=== PATIENT | male | born 1965 | race African-American/Black ===

== ENCOUNTER 2020-07-15 16:47 | Inpatient (IN) | payer OTHER ==
[2020-07-15 18:51] VITALS: BMI 34.7
[2020-07-15] MEDS ORDERED: ACETAMINOPHEN 325 MG TABLET (FP) PO PRN ×2 (19:53)
[2020-07-15] MEDS ORDERED: BISMUTH SUBSALICYLATE 524 MG/30 ML UD PO PRN (19:53)
[2020-07-15] MEDS ORDERED: MAG HYDROX/AL HYDROX/SIMETH 30 ML UNIT-DOSE CUP PO PRN (19:53)
[2020-07-15] MEDS ORDERED: IBUPROFEN 400 MG TABLET (FP) PO PRN (19:53)
[2020-07-15] MEDS ORDERED: MAGNESIUM HYDROX 2400MG/30ML ORAL SUSPENSION 30 ML CUP PO PRN (19:53)
[2020-07-15] MEDS ORDERED: ONDANSETRON *ODT* 4 MG TABLET SL PRN (19:53)
[2020-07-15] MEDS ORDERED: MAGNESIUM CITRATE 300 ML BOTTLE PO PRN (19:53)
[2020-07-15] MEDS ORDERED: NICOTINE POLACRILEX 2 MG GUM BUC PRN (19:53)
[2020-07-15] MEDS ORDERED: MENTHOL/PHENOL 1 EACH UD MM PRN (19:53)
[2020-07-15] MEDS ORDERED: METHOCARBAMOL 500 MG TABLET PO PRN (19:53)
[2020-07-15] MEDS ORDERED: diazePAM 5 MG TABLET PO PRN (19:55)
[2020-07-15] MEDS ORDERED: amLODIPine BESYLATE 5 MG TABLET (FP) PO ONE (21:07)
[2020-07-15] MEDS: ASPIRIN 81 MG CHEWABLE TABLETS PO SCH (21:18)
[2020-07-15] MEDS: THIAMINE HCL 100 MG TABLET (FP) PO SCH (22:25)
[2020-07-15] MEDS: diazePAM 5 MG TABLET PO SCH (22:25)
[2020-07-15] MEDS: MELATONIN 5 MG TABLETS PO PRN (22:26)
[2020-07-15] MEDS: LATANOPROST 0.005% OPHTH SOLN 2.5ML BOTTLE OU SCH (22:28)
[2020-07-15] MEDS: TIMOLOL 0.25% OPHTHALMIC SOL 5 ML BOTTLE OU SCH (23:08)
[2020-07-16] MEDS: diazePAM 5 MG TABLET PO SCH ×4 (06:32→22:22)
[2020-07-16] MEDS: amLODIPine BESYLATE 5 MG TABLET (FP) PO SCH (10:10)
[2020-07-16] MEDS: TAMSULOSIN HCL 0.4 MG CAP PO SCH (10:10)
[2020-07-16] MEDS: ASPIRIN 81 MG CHEWABLE TABLETS PO SCH (10:10)
[2020-07-16] MEDS: TIMOLOL 0.25% OPHTHALMIC SOL 5 ML BOTTLE OU SCH ×2 (10:13→22:24)
[2020-07-16] MEDS: PRENATAL VITAMINS W/ FOLIC ACID TABLET (FP) PO SCH (10:13)
[2020-07-16 10:34] LABS: HEMATOCRIT 41.8 % (35.4-49); HEMOGLOBIN 13.6 GM/dL (11.7-16.9); MCH 30.1 pg (25.7-33.7); MCHC 32.6 g/dl (32.0-35.9); MEAN CELL VOLUME 92.3 fl (80-96); MEAN PLT VOLUME 7.8 fl (7.5-11.1); PLATELET COUNT 235 K/MM3 (134-434); RBC 4.53 M/mm3 (4.00-5.60); RDW 13.7 % (11.9-15.9); WHITE BLOOD COUNT 6.1 K/mm3 (4.0-10.0)
[2020-07-16 10:36] LABS: POTASSIUM 4.2 mmol/L (3.5-5.1)
[2020-07-16 10:43] LABS: CALCIUM 8.6 mg/dL (8.5-10.1)
[2020-07-16 10:44] LABS: ALBUMIN 3.4 g/dl (3.4-5.0)
[2020-07-16 10:47] LABS: CREATININE 0.9 mg/dL (0.55-1.3)
[2020-07-16 10:48] LABS: BILIRUBIN,TOTAL 1.4 mg/dL (0.2-1); TOT PROT 6.4 g/dl (6.4-8.2)
[2020-07-16] MEDS: THIAMINE HCL 100 MG TABLET (FP) PO SCH (22:22)
[2020-07-16] MEDS: LATANOPROST 0.005% OPHTH SOLN 2.5ML BOTTLE OU SCH (22:24)
[2020-07-17] MEDS: diazePAM 5 MG TABLET PO SCH ×3 (06:44→22:19)
[2020-07-17] MEDS: TAMSULOSIN HCL 0.4 MG CAP PO SCH (10:16)
[2020-07-17] MEDS: amLODIPine BESYLATE 5 MG TABLET (FP) PO SCH (10:16)
[2020-07-17] MEDS: ASPIRIN 81 MG CHEWABLE TABLETS PO SCH (10:16)
[2020-07-17] MEDS: PRENATAL VITAMINS W/ FOLIC ACID TABLET (FP) PO SCH (10:17)
[2020-07-17] MEDS: TIMOLOL 0.25% OPHTHALMIC SOL 5 ML BOTTLE OU SCH ×2 (10:17→22:19)
[2020-07-17] MEDS ORDERED: FAMOTIDINE 20 MG TABLET PO ONE (11:22)
[2020-07-17] MEDS ORDERED: MASKS NR ONE (17:00)
[2020-07-17] MEDS: THIAMINE HCL 100 MG TABLET (FP) PO SCH (22:19)
[2020-07-17] MEDS: LATANOPROST 0.005% OPHTH SOLN 2.5ML BOTTLE OU SCH (22:20)
[2020-07-18] MEDS: diazePAM 5 MG TABLET PO SCH ×2 (07:07→17:27)
[2020-07-18] MEDS: TAMSULOSIN HCL 0.4 MG CAP PO SCH (10:42)
[2020-07-18] MEDS: ASPIRIN 81 MG CHEWABLE TABLETS PO SCH (10:42)
[2020-07-18] MEDS: amLODIPine BESYLATE 5 MG TABLET (FP) PO SCH (10:42)
[2020-07-18] MEDS: PRENATAL VITAMINS W/ FOLIC ACID TABLET (FP) PO SCH (10:42)
[2020-07-18] MEDS: TIMOLOL 0.25% OPHTHALMIC SOL 5 ML BOTTLE OU SCH ×2 (10:43→22:18)
[2020-07-18] MEDS: CYCLOBENZAPRINE HCL 10 MG TABLET (FP) PO PRN (10:44)
[2020-07-18] MEDS: LIDOCAINE 5% TOPICAL PATCH TP SCH (15:39)
[2020-07-18] MEDS ORDERED: LIDOCAINE PATCH REMOVAL MC SCH (22:00)
[2020-07-18] MEDS: THIAMINE HCL 100 MG TABLET (FP) PO SCH (22:18)
[2020-07-18] MEDS: MELATONIN 5 MG TABLETS PO PRN (22:18)
[2020-07-18] MEDS: LATANOPROST 0.005% OPHTH SOLN 2.5ML BOTTLE OU SCH (22:18)
[2020-07-19] MEDS ORDERED: diazePAM 5 MG TABLET PO ONE (06:00)
[2020-07-19] MEDS: TAMSULOSIN HCL 0.4 MG CAP PO SCH (09:30)
[2020-07-19 09:54] VITALS: BP 134/75; PULSE 80; TEMP 97.7
[2020-07-19] MEDS: ASPIRIN 81 MG CHEWABLE TABLETS PO SCH (10:08)
[2020-07-19] MEDS: LIDOCAINE 5% TOPICAL PATCH TP SCH (10:08)
[2020-07-19] MEDS: PRENATAL VITAMINS W/ FOLIC ACID TABLET (FP) PO SCH (10:08)
[2020-07-19] MEDS: TIMOLOL 0.25% OPHTHALMIC SOL 5 ML BOTTLE OU SCH (10:09)
[2020-07-19] MEDS: amLODIPine BESYLATE 5 MG TABLET (FP) PO SCH (10:09)
[2020-07-19] MEDS: CYCLOBENZAPRINE HCL 10 MG TABLET (FP) PO PRN (10:12)
== END 2020-07-19 11:45 | disposition other institution (70) | DRG 774 ==
LOC: YASAS 16:47 → Y6N 20:05
PROVIDERS: ADMIT Allergy & Immunology; ATTEND Allergy & Immunology
PROC: HZ2ZZZZ Detoxification Services for Substance Abuse Treatment (ICD-10-PCS; principal; 2020-07-15)
DX: F10.230 Alcohol dependence with withdrawal, uncomplicated (principal); F10.220 Alcohol dependence with intoxication, uncomplicated; F14.20 Cocaine dependence, uncomplicated; F17.210 Nicotine dependence, cigarettes, uncomplicated; I10 Essential (primary) hypertension; N40.0 Benign prostatic hyperplasia without lower urinary tract symptoms; H40.9 Unspecified glaucoma; I69.354 Hemiplegia and hemiparesis following cerebral infarction affecting left non-dominant side; Z86.79 Personal history of other diseases of the circulatory system
CPT/HCPCS: 36415; 80053; 85027; 86780; C9803; U0003

== ENCOUNTER 2020-07-19 12:07 | Inpatient (IN) | payer OTHER ==
[2020-07-19] MEDS ORDERED: guaiFENesin 200 MG/10 ML 10 ML UNIT-DOSE CUPS PO PRN (16:02)
[2020-07-19] MEDS ORDERED: ACETAMINOPHEN 325 MG TABLET (FP) PO PRN (16:02)
[2020-07-19] MEDS ORDERED: LOPERAMIDE HCL 2 MG CAPSULE PO PRN (16:02)
[2020-07-19] MEDS ORDERED: MENTHOL/PHENOL 1 EACH UD MM PRN (16:02)
[2020-07-19] MEDS ORDERED: NICOTINE POLACRILEX 2 MG GUM BUC PRN (16:02)
[2020-07-19] MEDS ORDERED: P-EPHED 60MG/TRIPROLIDI 2.5MG TABLET PO PRN (16:02)
[2020-07-19] MEDS ORDERED: MAGNESIUM CITRATE 300 ML BOTTLE PO PRN (16:02)
[2020-07-19] MEDS ORDERED: MAGNESIUM HYDROX 2400MG/30ML ORAL SUSPENSION 30 ML CUP PO PRN (16:02)
[2020-07-19] MEDS ORDERED: MAG HYDROX/AL HYDROX/SIMETH 30 ML UNIT-DOSE CUP PO PRN (16:02)
[2020-07-19] MEDS: METHOCARBAMOL 500 MG TABLET PO PRN (21:34)
[2020-07-19] MEDS: LATANOPROST 0.005% OPHTH SOLN 2.5ML BOTTLE OU SCH (21:34)
[2020-07-19] MEDS: TIMOLOL 0.25% OPHTHALMIC SOL 5 ML BOTTLE OU SCH (21:34)
[2020-07-19] MEDS: MELATONIN 5 MG TABLETS PO SCH (21:34)
[2020-07-19] MEDS: THIAMINE HCL 100 MG TABLET (FP) PO SCH (21:34)
[2020-07-19] MEDS: hydrOXYzine PAMOATE 25 MG CAPSULE (FP) PO PRN (21:35)
[2020-07-19] MEDS: LIDOCAINE PATCH REMOVAL MC SCH (21:35)
[2020-07-20] MEDS: LIDOCAINE 5% TOPICAL PATCH TP SCH (10:10)
[2020-07-20] MEDS: TAMSULOSIN HCL 0.4 MG CAP PO SCH (10:10)
[2020-07-20] MEDS: ASPIRIN 81 MG CHEWABLE TABLETS PO SCH (10:10)
[2020-07-20] MEDS: PRENATAL VITAMINS W/ FOLIC ACID TABLET (FP) PO SCH (10:10)
[2020-07-20] MEDS: amLODIPine BESYLATE 5 MG TABLET (FP) PO SCH (10:10)
[2020-07-20] MEDS: METHOCARBAMOL 500 MG TABLET PO PRN ×2 (10:12→21:59)
[2020-07-20] MEDS: TIMOLOL 0.25% OPHTHALMIC SOL 5 ML BOTTLE OU SCH ×2 (10:13→22:00)
[2020-07-20] MEDS: IBUPROFEN 400 MG TABLET (FP) PO PRN (10:14)
[2020-07-20] MEDS ORDERED: MASKS NR ONE (20:00)
[2020-07-20] MEDS: MELATONIN 5 MG TABLETS PO SCH (21:58)
[2020-07-20] MEDS: LIDOCAINE PATCH REMOVAL MC SCH (21:58)
[2020-07-20] MEDS: hydrOXYzine PAMOATE 25 MG CAPSULE (FP) PO PRN (21:59)
[2020-07-20] MEDS: THIAMINE HCL 100 MG TABLET (FP) PO SCH (21:59)
[2020-07-20] MEDS: LATANOPROST 0.005% OPHTH SOLN 2.5ML BOTTLE OU SCH (22:00)
[2020-07-21] MEDS: TAMSULOSIN HCL 0.4 MG CAP PO SCH (10:41)
[2020-07-21] MEDS: hydrOXYzine PAMOATE 25 MG CAPSULE (FP) PO PRN ×2 (10:41→21:19)
[2020-07-21] MEDS: PRENATAL VITAMINS W/ FOLIC ACID TABLET (FP) PO SCH (10:41)
[2020-07-21] MEDS: amLODIPine BESYLATE 5 MG TABLET (FP) PO SCH (10:41)
[2020-07-21] MEDS: LIDOCAINE 5% TOPICAL PATCH TP SCH (10:42)
[2020-07-21] MEDS: IBUPROFEN 400 MG TABLET (FP) PO PRN (10:42)
[2020-07-21] MEDS: TIMOLOL 0.25% OPHTHALMIC SOL 5 ML BOTTLE OU SCH ×2 (10:42→21:18)
[2020-07-21] MEDS: ASPIRIN 81 MG CHEWABLE TABLETS PO SCH (10:42)
[2020-07-21] MEDS: METHOCARBAMOL 500 MG TABLET PO PRN ×2 (10:43→21:19)
[2020-07-21] MEDS: LATANOPROST 0.005% OPHTH SOLN 2.5ML BOTTLE OU SCH (21:18)
[2020-07-21] MEDS: LIDOCAINE PATCH REMOVAL MC SCH (21:18)
[2020-07-21] MEDS: THIAMINE HCL 100 MG TABLET (FP) PO SCH (21:19)
[2020-07-21] MEDS: MELATONIN 5 MG TABLETS PO SCH (21:19)
[2020-07-21] MEDS: GABAPENTIN 300 MG CAPSULE PO SCH (21:19)
[2020-07-22] MEDS: ASPIRIN 81 MG CHEWABLE TABLETS PO SCH (10:14)
[2020-07-22] MEDS: TAMSULOSIN HCL 0.4 MG CAP PO SCH (10:14)
[2020-07-22] MEDS: hydrOXYzine PAMOATE 25 MG CAPSULE (FP) PO PRN ×2 (10:15→22:06)
[2020-07-22] MEDS: GABAPENTIN 300 MG CAPSULE PO SCH ×2 (10:15→22:06)
[2020-07-22] MEDS: amLODIPine BESYLATE 5 MG TABLET (FP) PO SCH (10:15)
[2020-07-22] MEDS: IBUPROFEN 400 MG TABLET (FP) PO PRN (10:15)
[2020-07-22] MEDS: PRENATAL VITAMINS W/ FOLIC ACID TABLET (FP) PO SCH (10:16)
[2020-07-22] MEDS: METHOCARBAMOL 500 MG TABLET PO PRN ×2 (10:16→22:06)
[2020-07-22] MEDS: TIMOLOL 0.25% OPHTHALMIC SOL 5 ML BOTTLE OU SCH ×2 (10:16→22:06)
[2020-07-22] MEDS: LIDOCAINE 5% TOPICAL PATCH TP SCH (10:16)
[2020-07-22] MEDS: LATANOPROST 0.005% OPHTH SOLN 2.5ML BOTTLE OU SCH (22:05)
[2020-07-22] MEDS: LIDOCAINE PATCH REMOVAL MC SCH (22:05)
[2020-07-22] MEDS: MELATONIN 5 MG TABLETS PO SCH (22:06)
[2020-07-22] MEDS: THIAMINE HCL 100 MG TABLET (FP) PO SCH (22:06)
[2020-07-23] MEDS: ASPIRIN 81 MG CHEWABLE TABLETS PO SCH (10:34)
[2020-07-23] MEDS: GABAPENTIN 300 MG CAPSULE PO SCH ×2 (10:34→21:27)
[2020-07-23] MEDS: amLODIPine BESYLATE 5 MG TABLET (FP) PO SCH (10:35)
[2020-07-23] MEDS: hydrOXYzine PAMOATE 25 MG CAPSULE (FP) PO PRN (10:35)
[2020-07-23] MEDS: LIDOCAINE 5% TOPICAL PATCH TP SCH (10:35)
[2020-07-23] MEDS: TAMSULOSIN HCL 0.4 MG CAP PO SCH (10:35)
[2020-07-23] MEDS: PRENATAL VITAMINS W/ FOLIC ACID TABLET (FP) PO SCH (10:36)
[2020-07-23] MEDS: TIMOLOL 0.25% OPHTHALMIC SOL 5 ML BOTTLE OU SCH ×2 (10:38→21:29)
[2020-07-23] MEDS: LIDOCAINE PATCH REMOVAL MC SCH (21:27)
[2020-07-23] MEDS: THIAMINE HCL 100 MG TABLET (FP) PO SCH (21:27)
[2020-07-23] MEDS: MELATONIN 5 MG TABLETS PO SCH (21:27)
[2020-07-23] MEDS: LATANOPROST 0.005% OPHTH SOLN 2.5ML BOTTLE OU SCH (21:27)
[2020-07-24] MEDS: TIMOLOL 0.25% OPHTHALMIC SOL 5 ML BOTTLE OU SCH ×2 (10:18→21:35)
[2020-07-24] MEDS: TAMSULOSIN HCL 0.4 MG CAP PO SCH (10:19)
[2020-07-24] MEDS: amLODIPine BESYLATE 5 MG TABLET (FP) PO SCH (10:19)
[2020-07-24] MEDS: GABAPENTIN 300 MG CAPSULE PO SCH ×2 (10:19→21:35)
[2020-07-24] MEDS: hydrOXYzine PAMOATE 25 MG CAPSULE (FP) PO PRN ×2 (10:19→21:35)
[2020-07-24] MEDS: LIDOCAINE 5% TOPICAL PATCH TP SCH (10:19)
[2020-07-24] MEDS: PRENATAL VITAMINS W/ FOLIC ACID TABLET (FP) PO SCH (10:19)
[2020-07-24] MEDS: ASPIRIN 81 MG CHEWABLE TABLETS PO SCH (10:19)
[2020-07-24] MEDS: LATANOPROST 0.005% OPHTH SOLN 2.5ML BOTTLE OU SCH (21:35)
[2020-07-24] MEDS: MELATONIN 5 MG TABLETS PO SCH (21:35)
[2020-07-24] MEDS: METHOCARBAMOL 500 MG TABLET PO PRN (21:35)
[2020-07-24] MEDS: THIAMINE HCL 100 MG TABLET (FP) PO SCH (21:35)
[2020-07-24] MEDS: LIDOCAINE PATCH REMOVAL MC SCH (21:35)
[2020-07-25] MEDS: PRENATAL VITAMINS W/ FOLIC ACID TABLET (FP) PO SCH (10:43)
[2020-07-25] MEDS: ASPIRIN 81 MG CHEWABLE TABLETS PO SCH (10:43)
[2020-07-25] MEDS: GABAPENTIN 300 MG CAPSULE PO SCH ×2 (10:43→21:23)
[2020-07-25] MEDS: amLODIPine BESYLATE 5 MG TABLET (FP) PO SCH (10:43)
[2020-07-25] MEDS: METHOCARBAMOL 500 MG TABLET PO PRN ×2 (10:43→21:23)
[2020-07-25] MEDS: hydrOXYzine PAMOATE 25 MG CAPSULE (FP) PO PRN ×2 (10:43→21:23)
[2020-07-25] MEDS: IBUPROFEN 400 MG TABLET (FP) PO PRN (10:44)
[2020-07-25] MEDS: LIDOCAINE 5% TOPICAL PATCH TP SCH (10:44)
[2020-07-25] MEDS: TIMOLOL 0.25% OPHTHALMIC SOL 5 ML BOTTLE OU SCH ×2 (10:45→21:23)
[2020-07-25] MEDS: TAMSULOSIN HCL 0.4 MG CAP PO SCH (10:46)
[2020-07-25] MEDS: THIAMINE HCL 100 MG TABLET (FP) PO SCH (21:23)
[2020-07-25] MEDS: MELATONIN 5 MG TABLETS PO SCH (21:23)
[2020-07-25] MEDS: LATANOPROST 0.005% OPHTH SOLN 2.5ML BOTTLE OU SCH (21:23)
[2020-07-25] MEDS: LIDOCAINE PATCH REMOVAL MC SCH (21:23)
[2020-07-26] MEDS: ASPIRIN 81 MG CHEWABLE TABLETS PO SCH (10:29)
[2020-07-26] MEDS: LIDOCAINE 5% TOPICAL PATCH TP SCH (10:29)
[2020-07-26] MEDS: GABAPENTIN 300 MG CAPSULE PO SCH ×2 (10:29→21:31)
[2020-07-26] MEDS: TAMSULOSIN HCL 0.4 MG CAP PO SCH (10:29)
[2020-07-26] MEDS: amLODIPine BESYLATE 5 MG TABLET (FP) PO SCH (10:29)
[2020-07-26] MEDS: PRENATAL VITAMINS W/ FOLIC ACID TABLET (FP) PO SCH (10:30)
[2020-07-26] MEDS: TIMOLOL 0.25% OPHTHALMIC SOL 5 ML BOTTLE OU SCH ×2 (10:30→21:31)
[2020-07-26] MEDS: METHOCARBAMOL 500 MG TABLET PO PRN ×2 (10:32→21:31)
[2020-07-26] MEDS: hydrOXYzine PAMOATE 25 MG CAPSULE (FP) PO PRN (21:31)
[2020-07-26] MEDS: THIAMINE HCL 100 MG TABLET (FP) PO SCH (21:31)
[2020-07-26] MEDS: LIDOCAINE PATCH REMOVAL MC SCH (21:31)
[2020-07-26] MEDS: MELATONIN 5 MG TABLETS PO SCH (21:31)
[2020-07-26] MEDS: LATANOPROST 0.005% OPHTH SOLN 2.5ML BOTTLE OU SCH (21:31)
[2020-07-27] MEDS ORDERED: MASKS NR ONE (06:17)
[2020-07-27] MEDS: PRENATAL VITAMINS W/ FOLIC ACID TABLET (FP) PO SCH (09:43)
[2020-07-27] MEDS: GABAPENTIN 300 MG CAPSULE PO SCH ×2 (09:43→21:26)
[2020-07-27] MEDS: amLODIPine BESYLATE 5 MG TABLET (FP) PO SCH (09:43)
[2020-07-27] MEDS: ASPIRIN 81 MG CHEWABLE TABLETS PO SCH (09:43)
[2020-07-27] MEDS: TAMSULOSIN HCL 0.4 MG CAP PO SCH (09:43)
[2020-07-27] MEDS: LIDOCAINE 5% TOPICAL PATCH TP SCH (09:44)
[2020-07-27] MEDS: METHOCARBAMOL 500 MG TABLET PO PRN (09:45)
[2020-07-27] MEDS: TIMOLOL 0.25% OPHTHALMIC SOL 5 ML BOTTLE OU SCH ×2 (09:46→21:27)
[2020-07-27] MEDS: hydrOXYzine PAMOATE 25 MG CAPSULE (FP) PO PRN (21:26)
[2020-07-27] MEDS: THIAMINE HCL 100 MG TABLET (FP) PO SCH (21:26)
[2020-07-27] MEDS: MELATONIN 5 MG TABLETS PO SCH (21:27)
[2020-07-27] MEDS: LIDOCAINE PATCH REMOVAL MC SCH (21:28)
[2020-07-27] MEDS: LATANOPROST 0.005% OPHTH SOLN 2.5ML BOTTLE OU SCH (21:28)
[2020-07-28] MEDS: ASPIRIN 81 MG CHEWABLE TABLETS PO SCH (09:08)
[2020-07-28] MEDS: LIDOCAINE 5% TOPICAL PATCH TP SCH (09:08)
[2020-07-28] MEDS: TAMSULOSIN HCL 0.4 MG CAP PO SCH (09:08)
[2020-07-28] MEDS: GABAPENTIN 300 MG CAPSULE PO SCH (09:08)
[2020-07-28] MEDS: amLODIPine BESYLATE 5 MG TABLET (FP) PO SCH (09:08)
[2020-07-28] MEDS: PRENATAL VITAMINS W/ FOLIC ACID TABLET (FP) PO SCH (09:08)
[2020-07-28] MEDS: TIMOLOL 0.25% OPHTHALMIC SOL 5 ML BOTTLE OU SCH (09:11)
[2020-07-28 11:05] VITALS: BP 110/60; PULSE 88; TEMP 98.2
== END 2020-07-28 10:00 | disposition home or self-care (01) | DRG 772 ==
LOC: YASAS 12:07 → Y5N 12:08
PROVIDERS: ADMIT Allergy & Immunology; ATTEND Allergy & Immunology
PROC: HZ42ZZZ Group Counseling for Substance Abuse Treatment, Cognitive-Behavioral (ICD-10-PCS; principal; 2020-07-19)
DX: F10.20 Alcohol dependence, uncomplicated (principal); F12.20 Cannabis dependence, uncomplicated; F17.210 Nicotine dependence, cigarettes, uncomplicated; I10 Essential (primary) hypertension; N40.0 Benign prostatic hyperplasia without lower urinary tract symptoms; H40.9 Unspecified glaucoma; R00.0 Tachycardia, unspecified; I69.354 Hemiplegia and hemiparesis following cerebral infarction affecting left non-dominant side; Z86.79 Personal history of other diseases of the circulatory system
CPT/HCPCS: C9803; U0003

== ENCOUNTER 2020-10-09 16:36 | Inpatient (IN) | payer OTHER ==
[2020-10-09 17:59] VITALS: BMI 35.6
[2020-10-09] MEDS ORDERED: IBUPROFEN 400 MG TABLET (FP) PO PRN (18:59)
[2020-10-09] MEDS ORDERED: chlordiazePOXIDE HCL 25 MG CAPSULE PO PRN (18:59)
[2020-10-09] MEDS ORDERED: MAGNESIUM CITRATE 300 ML BOTTLE PO PRN (18:59)
[2020-10-09] MEDS ORDERED: ACETAMINOPHEN 325 MG TABLET (FP) PO PRN ×2 (18:59)
[2020-10-09] MEDS ORDERED: METHOCARBAMOL 500 MG TABLET PO PRN (18:59)
[2020-10-09] MEDS ORDERED: BISMUTH SUBSALICYLATE 524 MG/30 ML UD PO PRN (18:59)
[2020-10-09] MEDS ORDERED: MENTHOL/PHENOL 1 EACH UD MM PRN (18:59)
[2020-10-09] MEDS ORDERED: MAGNESIUM HYDROX 2400MG/30ML ORAL SUSPENSION 30 ML CUP PO PRN (18:59)
[2020-10-09] MEDS ORDERED: ONDANSETRON *ODT* 4 MG TABLET SL PRN (18:59)
[2020-10-09] MEDS ORDERED: MAG HYDROX/AL HYDROX/SIMETH 30 ML UNIT-DOSE CUP PO PRN (18:59)
[2020-10-09] MEDS: chlordiazePOXIDE HCL 25 MG CAPSULE PO SCH (23:20)
[2020-10-09] MEDS: MELATONIN 5 MG TABLETS PO SCH (23:20)
[2020-10-09] MEDS: THIAMINE HCL 100 MG TABLET (FP) PO SCH (23:20)
[2020-10-10] MEDS: chlordiazePOXIDE HCL 25 MG CAPSULE PO SCH ×4 (06:29→22:29)
[2020-10-10] MEDS ORDERED: PRENATAL VITAMINS W/ FOLIC ACID TABLET (FP) PO SCH (10:00)
[2020-10-10] MEDS ORDERED: ASPIRIN 81 MG CHEWABLE TABLETS PO SCH (12:30)
[2020-10-10] MEDS ORDERED: TAMSULOSIN HCL 0.4 MG CAP PO SCH (12:30)
[2020-10-10] MEDS ORDERED: amLODIPine BESYLATE 5 MG TABLET (FP) PO SCH (12:30)
[2020-10-10] MEDS: GABAPENTIN 300 MG CAPSULE PO SCH ×2 (13:55→22:29)
[2020-10-10] MEDS: TIMOLOL 0.25% OPHTHALMIC SOL 5 ML BOTTLE OU SCH ×2 (15:21→22:29)
[2020-10-10] MEDS ORDERED: LATANOPROST 0.005% OPHTH SOLN 2.5ML BOTTLE OU SCH (22:00)
[2020-10-10] MEDS: THIAMINE HCL 100 MG TABLET (FP) PO SCH (22:29)
[2020-10-10] MEDS: MELATONIN 5 MG TABLETS PO SCH (22:29)
[2020-10-11] MEDS ORDERED: chlordiazePOXIDE HCL 25 MG CAPSULE PO SCH (05:00)
[2020-10-11 06:12] VITALS: BP 119/63; PULSE 71; TEMP 98
[2020-10-12] MEDS ORDERED: chlordiazePOXIDE HCL 10 MG CAPSULE PO PRN
[2020-10-12] MEDS ORDERED: chlordiazePOXIDE HCL 10 MG CAPSULE PO SCH (05:00)
[2020-10-13] MEDS ORDERED: chlordiazePOXIDE HCL 10 MG CAPSULE PO SCH (05:00)
[2020-10-14] MEDS ORDERED: chlordiazePOXIDE HCL 10 MG CAPSULE PO ONE (05:00)
== END 2020-10-11 10:51 | disposition left against medical advice (07) | DRG 770 ==
LOC: YASAS 16:36 → Y6N 21:02
PROVIDERS: ADMIT Allergy & Immunology; ATTEND Allergy & Immunology
PROC: HZ2ZZZZ Detoxification Services for Substance Abuse Treatment (ICD-10-PCS; principal; 2020-10-09)
DX: F10.230 Alcohol dependence with withdrawal, uncomplicated (principal); F14.10 Cocaine abuse, uncomplicated; F41.9 Anxiety disorder, unspecified; F32.9 Major depressive disorder, single episode, unspecified; H40.9 Unspecified glaucoma; I10 Essential (primary) hypertension; K21.9 Gastro-esophageal reflux disease without esophagitis; N40.0 Benign prostatic hyperplasia without lower urinary tract symptoms; I69.854 Hemiplegia and hemiparesis following other cerebrovascular disease affecting left non-dominant side; Z59.0 Homelessness; Z56.0 Unemployment, unspecified
CPT/HCPCS: 93005; 93010; C9803; U0003

== ENCOUNTER 2020-11-25 16:24 | Inpatient (IN) | payer OTHER ==
[2020-11-25 18:15] VITALS: BMI 35.6
[2020-11-25] MEDS ORDERED: NICOTINE POLACRILEX 2 MG GUM BUC PRN (22:04)
[2020-11-25] MEDS ORDERED: BISMUTH SUBSALICYLATE 524 MG/30 ML UD PO PRN (22:04)
[2020-11-25] MEDS ORDERED: MAGNESIUM HYDROX 2400MG/30ML ORAL SUSPENSION 30 ML CUP PO PRN (22:04)
[2020-11-25] MEDS ORDERED: MENTHOL/PHENOL 1 EACH UD MM PRN (22:04)
[2020-11-25] MEDS ORDERED: IBUPROFEN 400 MG TABLET (FP) PO PRN (22:04)
[2020-11-25] MEDS ORDERED: ACETAMINOPHEN 325 MG TABLET (FP) PO PRN ×2 (22:04)
[2020-11-25] MEDS ORDERED: MAGNESIUM CITRATE 300 ML BOTTLE PO PRN (22:04)
[2020-11-25] MEDS ORDERED: ONDANSETRON *ODT* 4 MG TABLET SL PRN (22:04)
[2020-11-25] MEDS ORDERED: chlordiazePOXIDE HCL 25 MG CAPSULE PO PRN (22:04)
[2020-11-25] MEDS ORDERED: METHOCARBAMOL 500 MG TABLET PO PRN (22:04)
[2020-11-25] MEDS ORDERED: MAG HYDROX/AL HYDROX/SIMETH 30 ML UNIT-DOSE CUP PO PRN (22:04)
[2020-11-26] MEDS ORDERED: chlordiazePOXIDE HCL 25 MG CAPSULE ONE ×2 (02:18→06:12)
[2020-11-26] MEDS: chlordiazePOXIDE HCL 25 MG CAPSULE PO SCH ×5 (05:21→22:58)
[2020-11-26] MEDS: GABAPENTIN 300 MG CAPSULE PO SCH ×3 (05:22→22:58)
[2020-11-26] MEDS ORDERED: hydrOXYzine PAMOATE 25 MG CAPSULE (FP) PO ONE (06:14)
[2020-11-26] MEDS: hydrOXYzine PAMOATE 25 MG CAPSULE (FP) PO SCH ×5 (06:16→22:58)
[2020-11-26] MEDS: PRENATAL VITAMINS W/ FOLIC ACID TABLET (FP) PO SCH (11:12)
[2020-11-26] MEDS: amLODIPine BESYLATE 5 MG TABLET (FP) PO SCH (11:12)
[2020-11-26] MEDS: ASPIRIN 81 MG CHEWABLE TABLETS PO SCH (11:12)
[2020-11-26] MEDS: TAMSULOSIN HCL 0.4 MG CAP PO SCH (11:12)
[2020-11-26] MEDS: NICOTINE 14 MG/24 HOURS TOPICAL PATCH TD SCH (11:12)
[2020-11-26 12:16] LABS: HEMATOCRIT 42.2 % (35.4-49); MCH 31.1 pg (25.7-33.7); MCHC 33.1 g/dl (32.0-35.9); MEAN CELL VOLUME 93.8 fl (80-96); MEAN PLT VOLUME 8.2 fl (7.5-11.1); PLATELET COUNT 227 K/MM3 (134-434); RDW 14.5 % (11.9-15.9); WHITE BLOOD COUNT 6.4 K/mm3 (4.0-10.0)
[2020-11-26 12:29] LABS: CALCIUM 8.8 mg/dL (8.5-10.1)
[2020-11-26 12:30] LABS: ALBUMIN 3.9 g/dl (3.4-5.0); BLOOD UREA NITROGEN 10.2 mg/dL (7-18)
[2020-11-26 12:33] LABS: BILIRUBIN,TOTAL 0.8 mg/dL (0.2-1); CREATININE 0.9 mg/dL (0.55-1.3)
[2020-11-26 12:34] LABS: TOT PROT 7.1 g/dl (6.4-8.2)
[2020-11-26] MEDS: TIMOLOL 0.25% OPHTHALMIC SOL 5 ML BOTTLE OU SCH (15:32)
[2020-11-26] MEDS: MELATONIN 5 MG TABLETS PO SCH (22:58)
[2020-11-26] MEDS: THIAMINE HCL 100 MG TABLET (FP) PO SCH (22:59)
[2020-11-26] MEDS: LATANOPROST 0.005% OPHTH SOLN 2.5ML BOTTLE OU SCH (23:03)
[2020-11-27] MEDS: TIMOLOL 0.25% OPHTHALMIC SOL 5 ML BOTTLE OU SCH ×3 (00:36→22:27)
[2020-11-27] MEDS: chlordiazePOXIDE HCL 25 MG CAPSULE PO SCH ×4 (07:11→22:25)
[2020-11-27] MEDS: hydrOXYzine PAMOATE 25 MG CAPSULE (FP) PO SCH ×5 (07:11→22:25)
[2020-11-27] MEDS ORDERED: CYCLOBENZAPRINE HCL 10 MG TABLET (FP) PO PRN (10:58)
[2020-11-27] MEDS: GABAPENTIN 300 MG CAPSULE PO SCH ×2 (12:32→22:25)
[2020-11-27] MEDS: amLODIPine BESYLATE 5 MG TABLET (FP) PO SCH (12:33)
[2020-11-27] MEDS: TAMSULOSIN HCL 0.4 MG CAP PO SCH (12:33)
[2020-11-27] MEDS: PRENATAL VITAMINS W/ FOLIC ACID TABLET (FP) PO SCH (12:33)
[2020-11-27] MEDS: ASPIRIN 81 MG CHEWABLE TABLETS PO SCH (12:33)
[2020-11-27] MEDS: NICOTINE 14 MG/24 HOURS TOPICAL PATCH TD SCH (12:33)
[2020-11-27] MEDS: LIDOCAINE 5% TOPICAL PATCH TP SCH (15:06)
[2020-11-27] MEDS: THIAMINE HCL 100 MG TABLET (FP) PO SCH (22:26)
[2020-11-27] MEDS: MELATONIN 5 MG TABLETS PO SCH (22:28)
[2020-11-27] MEDS: LIDOCAINE PATCH REMOVAL MC SCH (22:28)
[2020-11-27] MEDS: LATANOPROST 0.005% OPHTH SOLN 2.5ML BOTTLE OU SCH (23:28)
[2020-11-28] MEDS ORDERED: chlordiazePOXIDE HCL 10 MG CAPSULE PO PRN
[2020-11-28] MEDS: chlordiazePOXIDE HCL 10 MG CAPSULE PO SCH ×4 (05:59→23:15)
[2020-11-28] MEDS: hydrOXYzine PAMOATE 25 MG CAPSULE (FP) PO SCH ×5 (06:00→23:16)
[2020-11-28] MEDS: TIMOLOL 0.25% OPHTHALMIC SOL 5 ML BOTTLE OU SCH ×2 (10:27→23:16)
[2020-11-28] MEDS: GABAPENTIN 300 MG CAPSULE PO SCH ×2 (10:28→23:15)
[2020-11-28] MEDS: amLODIPine BESYLATE 5 MG TABLET (FP) PO SCH (10:28)
[2020-11-28] MEDS: NICOTINE 14 MG/24 HOURS TOPICAL PATCH TD SCH (10:28)
[2020-11-28] MEDS: PRENATAL VITAMINS W/ FOLIC ACID TABLET (FP) PO SCH (10:28)
[2020-11-28] MEDS: ASPIRIN 81 MG CHEWABLE TABLETS PO SCH (10:28)
[2020-11-28] MEDS: TAMSULOSIN HCL 0.4 MG CAP PO SCH (10:29)
[2020-11-28] MEDS: LIDOCAINE 5% TOPICAL PATCH TP SCH (10:32)
[2020-11-28] MEDS: THIAMINE HCL 100 MG TABLET (FP) PO SCH (23:15)
[2020-11-28] MEDS: LATANOPROST 0.005% OPHTH SOLN 2.5ML BOTTLE OU SCH (23:15)
[2020-11-28] MEDS: MELATONIN 5 MG TABLETS PO SCH (23:16)
[2020-11-28] MEDS: LIDOCAINE PATCH REMOVAL MC SCH (23:17)
[2020-11-29] MEDS: chlordiazePOXIDE HCL 10 MG CAPSULE PO SCH ×2 (04:39→18:00)
[2020-11-29 06:26] LABS: SARS-CoV-2 NAA Not Detected (Not Detected)
[2020-11-29] MEDS: hydrOXYzine PAMOATE 25 MG CAPSULE (FP) PO SCH ×5 (07:34→23:04)
[2020-11-29] MEDS: TIMOLOL 0.25% OPHTHALMIC SOL 5 ML BOTTLE OU SCH ×2 (10:13→23:04)
[2020-11-29] MEDS: LIDOCAINE 5% TOPICAL PATCH TP SCH (10:13)
[2020-11-29] MEDS: PRENATAL VITAMINS W/ FOLIC ACID TABLET (FP) PO SCH (10:13)
[2020-11-29] MEDS: GABAPENTIN 300 MG CAPSULE PO SCH ×2 (10:13→23:04)
[2020-11-29] MEDS: amLODIPine BESYLATE 5 MG TABLET (FP) PO SCH (10:13)
[2020-11-29] MEDS: ASPIRIN 81 MG CHEWABLE TABLETS PO SCH (10:14)
[2020-11-29] MEDS: TAMSULOSIN HCL 0.4 MG CAP PO SCH (10:14)
[2020-11-29] MEDS: NICOTINE 14 MG/24 HOURS TOPICAL PATCH TD SCH (10:14)
[2020-11-29] MEDS: LATANOPROST 0.005% OPHTH SOLN 2.5ML BOTTLE OU SCH (23:04)
[2020-11-29] MEDS: THIAMINE HCL 100 MG TABLET (FP) PO SCH (23:04)
[2020-11-29] MEDS: LIDOCAINE PATCH REMOVAL MC SCH (23:05)
[2020-11-29] MEDS: MELATONIN 5 MG TABLETS PO SCH (23:05)
[2020-11-30] MEDS ORDERED: chlordiazePOXIDE HCL 10 MG CAPSULE PO ONE (05:00)
[2020-11-30 05:56] VITALS: TEMP 97.5
[2020-11-30] MEDS: hydrOXYzine PAMOATE 25 MG CAPSULE (FP) PO SCH (06:13)
[2020-11-30 09:36] VITALS: BP 128/86; PULSE 69
== END 2020-11-30 09:13 | disposition home or self-care (01) | DRG 775 ==
LOC: YASAS 16:24 → Y3N 11-26 08:36 → Y6N 11-26 08:45
PROVIDERS: ADMIT Allergy & Immunology; ATTEND Allergy & Immunology
PROC: HZ2ZZZZ Detoxification Services for Substance Abuse Treatment (ICD-10-PCS; principal; 2020-11-26)
DX: F10.230 Alcohol dependence with withdrawal, uncomplicated (principal); F17.210 Nicotine dependence, cigarettes, uncomplicated; F32.9 Major depressive disorder, single episode, unspecified; I10 Essential (primary) hypertension; H40.9 Unspecified glaucoma; K21.9 Gastro-esophageal reflux disease without esophagitis; N40.0 Benign prostatic hyperplasia without lower urinary tract symptoms; I69.844 Monoplegia of lower limb following other cerebrovascular disease affecting left non-dominant side; Z99.89 Dependence on other enabling machines and devices; Z86.16 Personal history of COVID-19
CPT/HCPCS: 36415; 80053; 82947; 85027; 86780; 93005; 93010; C9803; U0003; U0005

== ENCOUNTER 2021-01-15 12:36 | Inpatient (IN) | payer OTHER ==
[2021-01-15] MEDS ORDERED: LORazepam 1 MG TABLET PO PRN (17:30)
[2021-01-15] MEDS ORDERED: METHOCARBAMOL 500 MG TABLET PO PRN (17:50)
[2021-01-15] MEDS ORDERED: BISMUTH SUBSALICYLATE 524 MG/30 ML PO PRN (17:50)
[2021-01-15] MEDS ORDERED: hydrOXYzine PAMOATE 25 MG CAPSULE (FP) PO PRN (17:50)
[2021-01-15] MEDS ORDERED: ONDANSETRON *ODT* 4 MG TABLET SL PRN (17:50)
[2021-01-15] MEDS ORDERED: NICOTINE POLACRILEX 2 MG GUM BUC PRN (17:50)
[2021-01-15] MEDS ORDERED: ACETAMINOPHEN 325 MG TABLET (FP) PO PRN ×2 (17:50)
[2021-01-15] MEDS ORDERED: MAGNESIUM CITRATE 300 ML BOTTLE PO PRN (17:50)
[2021-01-15] MEDS ORDERED: MAGNESIUM HYDROX 2400MG/30ML ORAL SUSPENSION 30 ML CUP PO PRN (17:50)
[2021-01-15] MEDS ORDERED: MENTHOL/PHENOL 1 EACH UD MM PRN (17:50)
[2021-01-15] MEDS ORDERED: IBUPROFEN 400 MG TABLET (FP) PO PRN (17:50)
[2021-01-15 18:10] VITALS: BMI 35.2
[2021-01-15] MEDS: LORazepam 2 MG TABLET PO SCH ×2 (19:29→23:39)
[2021-01-15] MEDS: MAG HYDROX/AL HYDROX/SIMETH 30 ML UNIT-DOSE CUP PO PRN (19:31)
[2021-01-15] MEDS: MELATONIN 5 MG TABLETS PO SCH (23:39)
[2021-01-15] MEDS: THIAMINE HCL 100 MG TABLET (FP) PO SCH (23:40)
[2021-01-16] MEDS: LORazepam 2 MG TABLET PO SCH ×2 (06:25→10:57)
[2021-01-16] MEDS: amLODIPine BESYLATE 5 MG TABLET (FP) PO SCH (10:44)
[2021-01-16] MEDS: TAMSULOSIN HCL 0.4 MG CAP PO SCH (10:44)
[2021-01-16] MEDS: ASPIRIN 81 MG CHEWABLE TABLETS PO SCH (10:44)
[2021-01-16] MEDS: PRENATAL VITAMINS W/ FOLIC ACID TABLET (FP) PO SCH (10:44)
[2021-01-16] MEDS: LORazepam 0.5 MG TABLET PO SCH ×2 (18:30→22:46)
[2021-01-16] MEDS: THIAMINE HCL 100 MG TABLET (FP) PO SCH (22:44)
[2021-01-16] MEDS: LATANOPROST 0.005% OPHTH SOLN 2.5ML BOTTLE OU SCH (22:45)
[2021-01-16] MEDS: MELATONIN 5 MG TABLETS PO SCH (22:45)
[2021-01-17] MEDS ORDERED: LORazepam 1 MG TABLET PO SCH (05:00)
[2021-01-17] MEDS: LORazepam 0.5 MG TABLET PO SCH ×3 (06:40→22:43)
[2021-01-17] MEDS: TAMSULOSIN HCL 0.4 MG CAP PO SCH (08:04)
[2021-01-17] MEDS: ASPIRIN 81 MG CHEWABLE TABLETS PO SCH (10:44)
[2021-01-17] MEDS: PRENATAL VITAMINS W/ FOLIC ACID TABLET (FP) PO SCH (10:44)
[2021-01-17] MEDS: amLODIPine BESYLATE 5 MG TABLET (FP) PO SCH (10:44)
[2021-01-17] MEDS: MAG HYDROX/AL HYDROX/SIMETH 30 ML UNIT-DOSE CUP PO PRN (10:45)
[2021-01-17] MEDS: MELATONIN 5 MG TABLETS PO SCH (22:43)
[2021-01-17] MEDS: LATANOPROST 0.005% OPHTH SOLN 2.5ML BOTTLE OU SCH (22:43)
[2021-01-17] MEDS: THIAMINE HCL 100 MG TABLET (FP) PO SCH (22:43)
[2021-01-18] MEDS ORDERED: LORazepam 0.5 MG TABLET PO PRN
[2021-01-18] MEDS ORDERED: LORazepam 0.5 MG TABLET PO SCH ×2 (05:00)
[2021-01-18] MEDS: MAG HYDROX/AL HYDROX/SIMETH 30 ML UNIT-DOSE CUP PO PRN (06:19)
[2021-01-18 06:38] VITALS: TEMP 97.8
[2021-01-18 09:27] VITALS: BP 136/69; PULSE 78
[2021-01-18] MEDS: TAMSULOSIN HCL 0.4 MG CAP PO SCH (09:28)
[2021-01-18] MEDS: PRENATAL VITAMINS W/ FOLIC ACID TABLET (FP) PO SCH (10:26)
[2021-01-18] MEDS: ASPIRIN 81 MG CHEWABLE TABLETS PO SCH (10:27)
[2021-01-18] MEDS: amLODIPine BESYLATE 5 MG TABLET (FP) PO SCH (10:28)
[2021-01-19] MEDS ORDERED: LORazepam 0.5 MG TABLET PO ONE (05:00)
== END 2021-01-18 11:34 | disposition home or self-care (01) | DRG 774 ==
LOC: YASAS 12:36 → Y6N 18:08
PROVIDERS: ADMIT Allergy & Immunology; ATTEND Allergy & Immunology
PROC: HZ2ZZZZ Detoxification Services for Substance Abuse Treatment (ICD-10-PCS; principal; 2021-01-15)
DX: F10.230 Alcohol dependence with withdrawal, uncomplicated (principal); F14.20 Cocaine dependence, uncomplicated; F17.210 Nicotine dependence, cigarettes, uncomplicated; H40.9 Unspecified glaucoma; I10 Essential (primary) hypertension; K21.9 Gastro-esophageal reflux disease without esophagitis; M54.5 Low back pain; G89.29 Other chronic pain; N40.0 Benign prostatic hyperplasia without lower urinary tract symptoms; Z86.73 Personal history of transient ischemic attack (TIA), and cerebral infarction without residual deficits; Z98.890 Other specified postprocedural states; Z87.19 Personal history of other diseases of the digestive system
CPT/HCPCS: C9803; U0003; U0005

== ENCOUNTER 2021-03-02 11:28 | Inpatient (IN) | payer OTHER ==
[2021-03-02 15:32] VITALS: BMI 33.1
[2021-03-02] MEDS ORDERED: IBUPROFEN 400 MG TABLET (FP) PO PRN (16:03)
[2021-03-02] MEDS ORDERED: BISMUTH SUBSALICYLATE 524 MG/30 ML PO PRN (16:03)
[2021-03-02] MEDS ORDERED: MENTHOL/PHENOL 1 EACH UD MM PRN (16:03)
[2021-03-02] MEDS ORDERED: MAGNESIUM HYDROX 2400MG/30ML ORAL SUSPENSION 30 ML CUP PO PRN (16:03)
[2021-03-02] MEDS ORDERED: MAG HYDROX/AL HYDROX/SIMETH 30 ML UNIT-DOSE CUP PO PRN (16:03)
[2021-03-02] MEDS ORDERED: ONDANSETRON *ODT* 4 MG TABLET SL PRN (16:03)
[2021-03-02] MEDS ORDERED: LORazepam 1 MG TABLET PO PRN (16:03)
[2021-03-02] MEDS ORDERED: METHOCARBAMOL 500 MG TABLET PO PRN (16:03)
[2021-03-02] MEDS ORDERED: NICOTINE POLACRILEX 2 MG GUM BUC PRN (16:03)
[2021-03-02] MEDS ORDERED: MAGNESIUM CITRATE 300 ML BOTTLE PO PRN (16:03)
[2021-03-02] MEDS ORDERED: ACETAMINOPHEN 325 MG TABLET (FP) PO PRN ×2 (16:03)
[2021-03-02] MEDS: LORazepam 2 MG TABLET PO SCH ×2 (18:40→22:55)
[2021-03-02] MEDS: PANTOPRAZOLE 20 MG TABLET PO SCH (18:42)
[2021-03-02] MEDS: ASPIRIN 81 MG CHEWABLE TABLETS PO SCH (18:43)
[2021-03-02] MEDS: LIDOCAINE 5% TOPICAL PATCH TP SCH (18:43)
[2021-03-02] MEDS: amLODIPine BESYLATE 5 MG TABLET (FP) PO SCH (18:43)
[2021-03-02] MEDS: hydrOXYzine PAMOATE 25 MG CAPSULE (FP) PO SCH ×2 (18:44→22:56)
[2021-03-02] MEDS: NICOTINE 14 MG/24 HOURS TOPICAL PATCH TD SCH (18:44)
[2021-03-02] MEDS: MELATONIN 5 MG TABLETS PO SCH (22:58)
[2021-03-02] MEDS: THIAMINE HCL 100 MG TABLET (FP) PO SCH (22:58)
[2021-03-02] MEDS: TIMOLOL 0.25% OPHTHALMIC SOL 5 ML BOTTLE OU SCH (22:58)
[2021-03-02] MEDS: LIDOCAINE PATCH REMOVAL MC SCH (22:59)
[2021-03-02] MEDS: LATANOPROST 0.005% OPHTH SOLN 2.5ML BOTTLE OU SCH (22:59)
[2021-03-03] MEDS: LORazepam 2 MG TABLET PO SCH ×5 (06:00→22:39)
[2021-03-03] MEDS: hydrOXYzine PAMOATE 25 MG CAPSULE (FP) PO SCH ×4 (06:30→14:50)
[2021-03-03] MEDS ORDERED: PRENATAL VITAMINS W/ FOLIC ACID TABLET (FP) PO SCH (10:00)
[2021-03-03 10:51] LABS: HEMATOCRIT 44.5 % (35.4-49); HEMOGLOBIN 14.1 GM/dL (11.7-16.9); MCH 29.9 pg (25.7-33.7); MCHC 31.8 g/dl (32.0-35.9); MEAN PLT VOLUME 8.8 fl (7.5-11.1); PLATELET COUNT 282 10^3/uL (134-434); RBC 4.73 M/mm3 (4.00-5.60); RDW 14.4 % (11.9-15.9); WHITE BLOOD COUNT 8.4 K/mm3 (4.0-10.0)
[2021-03-03] MEDS: LIDOCAINE 5% TOPICAL PATCH TP SCH (11:14)
[2021-03-03] MEDS: PANTOPRAZOLE 20 MG TABLET PO SCH (11:15)
[2021-03-03] MEDS: NICOTINE 14 MG/24 HOURS TOPICAL PATCH TD SCH (11:15)
[2021-03-03] MEDS: TIMOLOL 0.25% OPHTHALMIC SOL 5 ML BOTTLE OU SCH ×2 (11:15→22:40)
[2021-03-03] MEDS: ASPIRIN 81 MG CHEWABLE TABLETS PO SCH (11:15)
[2021-03-03] MEDS: amLODIPine BESYLATE 5 MG TABLET (FP) PO SCH (11:15)
[2021-03-03 11:25] LABS: BLOOD UREA NITROGEN 8.7 mg/dL (7-18)
[2021-03-03 11:26] LABS: ALBUMIN 4.4 g/dl (3.4-5.0)
[2021-03-03 11:27] LABS: CALCIUM 8.9 mg/dL (8.5-10.1)
[2021-03-03 11:31] LABS: CREATININE 1.1 mg/dL (0.55-1.3)
[2021-03-03 11:33] LABS: BILIRUBIN,TOTAL 0.3 mg/dL (0.2-1); TOT PROT 7.5 g/dl (6.4-8.2)
[2021-03-03] MEDS ORDERED: DULoxetine HCL 30 MG CAPSULE.DR PO SCH (11:45)
[2021-03-03] MEDS ORDERED: hydrOXYzine PAMOATE 25 MG CAPSULE (FP) PO PRN (14:22)
[2021-03-03] MEDS: LATANOPROST 0.005% OPHTH SOLN 2.5ML BOTTLE OU SCH (22:40)
[2021-03-03] MEDS: MELATONIN 5 MG TABLETS PO SCH (22:40)
[2021-03-03] MEDS: LIDOCAINE PATCH REMOVAL MC SCH (22:40)
[2021-03-03] MEDS: THIAMINE HCL 100 MG TABLET (FP) PO SCH (22:40)
[2021-03-04] MEDS ORDERED: LORazepam 1 MG TABLET PO SCH (05:00)
[2021-03-04 09:12] VITALS: BP 106/65; PULSE 20; TEMP 96.8
[2021-03-05] MEDS ORDERED: LORazepam 0.5 MG TABLET PO PRN
[2021-03-05] MEDS ORDERED: LORazepam 0.5 MG TABLET PO SCH (05:00)
[2021-03-06] MEDS ORDERED: LORazepam 0.5 MG TABLET PO ONE (05:00)
== END 2021-03-04 09:37 | disposition left against medical advice (07) | DRG 770 ==
LOC: YASAS 11:28 → Y3N 15:33
PROVIDERS: ADMIT Allergy & Immunology; ATTEND Allergy & Immunology
PROC: HZ2ZZZZ Detoxification Services for Substance Abuse Treatment (ICD-10-PCS; principal; 2021-03-02)
DX: F10.230 Alcohol dependence with withdrawal, uncomplicated (principal); F14.20 Cocaine dependence, uncomplicated; F10.220 Alcohol dependence with intoxication, uncomplicated; F17.210 Nicotine dependence, cigarettes, uncomplicated; F32.9 Major depressive disorder, single episode, unspecified; I10 Essential (primary) hypertension; H40.9 Unspecified glaucoma; K21.9 Gastro-esophageal reflux disease without esophagitis; N40.0 Benign prostatic hyperplasia without lower urinary tract symptoms; Z86.73 Personal history of transient ischemic attack (TIA), and cerebral infarction without residual deficits
CPT/HCPCS: 36415; 80053; 85027; 86780; C9803; U0003; U0005

== ENCOUNTER 2021-04-11 12:52 | Inpatient (IN) | payer OTHER ==
[2021-04-11 15:59] VITALS: BMI 76.6
[2021-04-11] MEDS ORDERED: hydrOXYzine PAMOATE 25 MG CAPSULE (FP) PO PRN (15:59)
[2021-04-11] MEDS ORDERED: IBUPROFEN 400 MG TABLET (FP) PO PRN (15:59)
[2021-04-11] MEDS ORDERED: diazePAM 5 MG TABLET PO PRN (15:59)
[2021-04-11] MEDS ORDERED: METHOCARBAMOL 500 MG TABLET PO PRN (15:59)
[2021-04-11] MEDS ORDERED: NICOTINE 10 MG CARTRIDGE (INHALER) IH PRN (15:59)
[2021-04-11] MEDS ORDERED: MAGNESIUM CITRATE 300 ML BOTTLE PO PRN (15:59)
[2021-04-11] MEDS ORDERED: MAG HYDROX/AL HYDROX/SIMETH 30 ML UNIT-DOSE CUP PO PRN (15:59)
[2021-04-11] MEDS ORDERED: ACETAMINOPHEN 325 MG TABLET (FP) PO PRN ×2 (15:59)
[2021-04-11] MEDS ORDERED: ONDANSETRON *ODT* 4 MG TABLET SL PRN (15:59)
[2021-04-11] MEDS ORDERED: BISMUTH SUBSALICYLATE 524 MG/30 ML PO PRN (15:59)
[2021-04-11] MEDS ORDERED: MENTHOL/PHENOL 1 EACH UD MM PRN (15:59)
[2021-04-11] MEDS ORDERED: MAGNESIUM HYDROX 2400MG/30ML ORAL SUSPENSION 30 ML CUP PO PRN (15:59)
[2021-04-11] MEDS ORDERED: LIDOCAINE 5% TOPICAL PATCH TP PRN (16:01)
[2021-04-11] MEDS: diazePAM 5 MG TABLET PO SCH ×2 (17:39→22:42)
[2021-04-11] MEDS: THIAMINE HCL 100 MG TABLET (FP) PO SCH (22:41)
[2021-04-11] MEDS: MELATONIN 5 MG TABLETS PO SCH (22:41)
[2021-04-11] MEDS: LIDOCAINE PATCH REMOVAL MC SCH (22:43)
[2021-04-12] MEDS: diazePAM 5 MG TABLET PO SCH ×4 (05:39→22:20)
[2021-04-12 10:39] LABS: HEMATOCRIT 42.2 % (35.4-49); HEMOGLOBIN 13.8 GM/dL (11.7-16.9); MCH 30.6 pg (25.7-33.7); MCHC 32.7 g/dl (32.0-35.9); MEAN CELL VOLUME 93.5 fl (80-96); MEAN PLT VOLUME 8.3 fl (7.5-11.1); PLATELET COUNT 245 10^3/uL (134-434); RBC 4.52 M/mm3 (4.00-5.60); RDW 14.3 % (11.9-15.9); WHITE BLOOD COUNT 5.5 K/mm3 (4.0-10.0)
[2021-04-12] MEDS: amLODIPine BESYLATE 5 MG TABLET (FP) PO SCH (10:40)
[2021-04-12] MEDS: ASPIRIN 81 MG CHEWABLE TABLETS PO SCH (10:40)
[2021-04-12] MEDS: TIMOLOL 0.25% OPHTHALMIC SOL 5 ML BOTTLE OU SCH ×2 (10:41→22:19)
[2021-04-12 10:43] LABS: CALCIUM 8.7 mg/dL (8.5-10.1)
[2021-04-12 10:44] LABS: ALBUMIN 4.1 g/dl (3.4-5.0); BLOOD UREA NITROGEN 9.7 mg/dL (7-18)
[2021-04-12] MEDS: LIDOCAINE 5% TOPICAL PATCH TP SCH (10:45)
[2021-04-12 10:47] LABS: CREATININE 0.9 mg/dL (0.55-1.3)
[2021-04-12 10:48] LABS: BILIRUBIN,TOTAL 0.8 mg/dL (0.2-1); TOT PROT 7.2 g/dl (6.4-8.2)
[2021-04-12] MEDS: DULoxetine HCL 30 MG CAPSULE.DR PO SCH ×2 (11:27→22:19)
[2021-04-12] MEDS: MELATONIN 5 MG TABLETS PO SCH (22:18)
[2021-04-12] MEDS: THIAMINE HCL 100 MG TABLET (FP) PO SCH (22:19)
[2021-04-12] MEDS: LATANOPROST 0.005% OPHTH SOLN 2.5ML BOTTLE OU SCH (22:20)
[2021-04-12] MEDS: LIDOCAINE PATCH REMOVAL MC SCH (22:33)
[2021-04-13] MEDS: diazePAM 5 MG TABLET PO SCH ×3 (06:18→22:12)
[2021-04-13] MEDS: LIDOCAINE 5% TOPICAL PATCH TP SCH (10:07)
[2021-04-13] MEDS: ASPIRIN 81 MG CHEWABLE TABLETS PO SCH (10:07)
[2021-04-13] MEDS: amLODIPine BESYLATE 5 MG TABLET (FP) PO SCH (10:07)
[2021-04-13] MEDS: DULoxetine HCL 30 MG CAPSULE.DR PO SCH ×2 (10:08→22:12)
[2021-04-13] MEDS: TIMOLOL 0.25% OPHTHALMIC SOL 5 ML BOTTLE OU SCH ×2 (10:09→22:12)
[2021-04-13] MEDS: HYDROCORTISONE 2.5% TOPICAL CREAM 30 GM TUBE TP SCH ×2 (12:21→22:11)
[2021-04-13] MEDS: DOCUSATE SODIUM 100 MG CAPSULE (FP) PO SCH ×2 (13:09→22:12)
[2021-04-13] MEDS: MELATONIN 5 MG TABLETS PO SCH (22:12)
[2021-04-13] MEDS: THIAMINE HCL 100 MG TABLET (FP) PO SCH (22:12)
[2021-04-13] MEDS: LATANOPROST 0.005% OPHTH SOLN 2.5ML BOTTLE OU SCH (22:13)
[2021-04-13] MEDS: LIDOCAINE PATCH REMOVAL MC SCH (23:04)
[2021-04-14] MEDS: DOCUSATE SODIUM 100 MG CAPSULE (FP) PO SCH (05:34)
[2021-04-14] MEDS ORDERED: diazePAM 5 MG TABLET PO SCH (06:00)
[2021-04-14 09:43] VITALS: BP 133/85; PULSE 74; TEMP 97.2
[2021-04-14] MEDS: LIDOCAINE 5% TOPICAL PATCH TP SCH (09:44)
[2021-04-14] MEDS: ASPIRIN 81 MG CHEWABLE TABLETS PO SCH (09:44)
[2021-04-14] MEDS: amLODIPine BESYLATE 5 MG TABLET (FP) PO SCH (09:44)
[2021-04-14] MEDS: DULoxetine HCL 30 MG CAPSULE.DR PO SCH (09:44)
[2021-04-14] MEDS: HYDROCORTISONE 2.5% TOPICAL CREAM 30 GM TUBE TP SCH (09:44)
[2021-04-14] MEDS: TIMOLOL 0.25% OPHTHALMIC SOL 5 ML BOTTLE OU SCH (09:44)
[2021-04-15] MEDS ORDERED: diazePAM 5 MG TABLET PO ONE (06:00)
== END 2021-04-14 09:38 | disposition home or self-care (01) | DRG 774 ==
LOC: YASAS 12:52 → Y3N 15:20
PROVIDERS: ADMIT Allergy & Immunology; ATTEND Allergy & Immunology
PROC: HZ2ZZZZ Detoxification Services for Substance Abuse Treatment (ICD-10-PCS; principal; 2021-04-11)
DX: F10.230 Alcohol dependence with withdrawal, uncomplicated (principal); F14.20 Cocaine dependence, uncomplicated; F17.210 Nicotine dependence, cigarettes, uncomplicated; I10 Essential (primary) hypertension; K21.9 Gastro-esophageal reflux disease without esophagitis; H40.9 Unspecified glaucoma; N40.0 Benign prostatic hyperplasia without lower urinary tract symptoms; Z86.73 Personal history of transient ischemic attack (TIA), and cerebral infarction without residual deficits; Z86.79 Personal history of other diseases of the circulatory system; Z86.59 Personal history of other mental and behavioral disorders
CPT/HCPCS: 36415; 80053; 85027; C9803; U0003; U0005

== ENCOUNTER 2021-05-19 12:57 | Inpatient (IN) | payer OTHER ==
[2021-05-19 16:29] VITALS: BMI 35.1
[2021-05-19] MEDS ORDERED: MAGNESIUM CITRATE 300 ML BOTTLE PO PRN (18:28)
[2021-05-19] MEDS ORDERED: ONDANSETRON *ODT* 4 MG TABLET SL PRN (18:28)
[2021-05-19] MEDS ORDERED: ACETAMINOPHEN 325 MG TABLET (FP) PO PRN ×2 (18:28)
[2021-05-19] MEDS ORDERED: NICOTINE POLACRILEX 2 MG GUM BUC PRN (18:28)
[2021-05-19] MEDS ORDERED: MENTHOL/PHENOL 1 EACH UD MM PRN (18:28)
[2021-05-19] MEDS ORDERED: MAG HYDROX/AL HYDROX/SIMETH 30 ML UNIT-DOSE CUP PO PRN (18:28)
[2021-05-19] MEDS ORDERED: METHOCARBAMOL 500 MG TABLET PO PRN (18:28)
[2021-05-19] MEDS ORDERED: IBUPROFEN 400 MG TABLET (FP) PO PRN (18:28)
[2021-05-19] MEDS ORDERED: MAGNESIUM HYDROX 2400MG/30ML ORAL SUSPENSION 30 ML CUP PO PRN (18:28)
[2021-05-19] MEDS ORDERED: BISMUTH SUBSALICYLATE 524 MG/30 ML PO PRN (18:28)
[2021-05-19] MEDS ORDERED: LORazepam 1 MG TABLET PO PRN (18:36)
[2021-05-19] MEDS ORDERED: ACETAMINOPHEN 325 MG TABLET (FP) ONE (18:47)
[2021-05-19] MEDS ORDERED: LORazepam 2 MG TABLET ONE (23:26)
[2021-05-19] MEDS: LORazepam 2 MG TABLET PO SCH (23:33)
[2021-05-19] MEDS: THIAMINE HCL 100 MG TABLET (FP) PO SCH (23:33)
[2021-05-19] MEDS: MELATONIN 5 MG TABLETS PO SCH (23:33)
[2021-05-20] MEDS ORDERED: LORazepam 2 MG TABLET ONE (06:27)
[2021-05-20] MEDS: LORazepam 2 MG TABLET PO SCH ×4 (06:54→23:15)
[2021-05-20 10:31] LABS: HEMATOCRIT 41.4 % (35.4-49); HEMOGLOBIN 13.5 GM/dL (11.7-16.9); MCH 30.4 pg (25.7-33.7); MCHC 32.7 g/dl (32.0-35.9); MEAN CELL VOLUME 93.1 fl (80-96); MEAN PLT VOLUME 7.9 fl (7.5-11.1); PLATELET COUNT 264 10^3/uL (134-434); RBC 4.45 M/mm3 (4.00-5.60); RDW 14.2 % (11.9-15.9); WHITE BLOOD COUNT 6.1 K/mm3 (4.0-10.0)
[2021-05-20 10:38] LABS: CALCIUM 8.9 mg/dL (8.5-10.1)
[2021-05-20 10:39] LABS: ALBUMIN 3.9 g/dl (3.4-5.0)
[2021-05-20 10:42] LABS: CREATININE 0.9 mg/dL (0.55-1.3)
[2021-05-20 10:44] LABS: TOT PROT 7.1 g/dl (6.4-8.2)
[2021-05-20] MEDS: NICOTINE 21 MG/24 HOURS TOPICAL PATCH TD SCH (12:47)
[2021-05-20] MEDS: PRENATAL VITAMINS W/ FOLIC ACID TABLET (FP) PO SCH (12:47)
[2021-05-20] MEDS: ASPIRIN 81 MG CHEWABLE TABLETS PO SCH (12:47)
[2021-05-20] MEDS: amLODIPine BESYLATE 5 MG TABLET (FP) PO SCH (12:47)
[2021-05-20] MEDS: MELATONIN 5 MG TABLETS PO SCH (23:16)
[2021-05-20] MEDS: THIAMINE HCL 100 MG TABLET (FP) PO SCH (23:16)
[2021-05-20] MEDS: GABAPENTIN 300 MG CAPSULE PO SCH (23:16)
[2021-05-20] MEDS: TIMOLOL 0.25% OPHTHALMIC SOL 5 ML BOTTLE OU SCH (23:16)
[2021-05-20] MEDS: LATANOPROST 0.005% OPHTH SOLN 2.5ML BOTTLE OU SCH (23:16)
[2021-05-21] MEDS: LORazepam 1 MG TABLET PO SCH ×4 (05:27→23:10)
[2021-05-21] MEDS: ASPIRIN 81 MG CHEWABLE TABLETS PO SCH (10:36)
[2021-05-21] MEDS: GABAPENTIN 300 MG CAPSULE PO SCH ×2 (10:37→22:45)
[2021-05-21] MEDS: amLODIPine BESYLATE 5 MG TABLET (FP) PO SCH (10:37)
[2021-05-21] MEDS: PRENATAL VITAMINS W/ FOLIC ACID TABLET (FP) PO SCH (10:40)
[2021-05-21] MEDS: DULoxetine HCL 30 MG CAPSULE.DR PO SCH (10:40)
[2021-05-21] MEDS: TIMOLOL 0.25% OPHTHALMIC SOL 5 ML BOTTLE OU SCH ×2 (10:41→22:47)
[2021-05-21] MEDS: NICOTINE 21 MG/24 HOURS TOPICAL PATCH TD SCH (10:41)
[2021-05-21] MEDS: THIAMINE HCL 100 MG TABLET (FP) PO SCH (22:46)
[2021-05-21] MEDS: MELATONIN 5 MG TABLETS PO SCH (22:46)
[2021-05-21] MEDS: LATANOPROST 0.005% OPHTH SOLN 2.5ML BOTTLE OU SCH (22:49)
[2021-05-22] MEDS ORDERED: LORazepam 0.5 MG TABLET PO PRN
[2021-05-22] MEDS: LORazepam 0.5 MG TABLET PO SCH ×4 (05:28→22:11)
[2021-05-22] MEDS: NICOTINE 21 MG/24 HOURS TOPICAL PATCH TD SCH (10:34)
[2021-05-22] MEDS: amLODIPine BESYLATE 5 MG TABLET (FP) PO SCH (10:36)
[2021-05-22] MEDS: NAPROXEN 500 MG TABLET PO SCH ×2 (10:37→22:11)
[2021-05-22] MEDS: ASPIRIN 81 MG CHEWABLE TABLETS PO SCH (10:37)
[2021-05-22] MEDS: GABAPENTIN 300 MG CAPSULE PO SCH ×2 (10:37→22:10)
[2021-05-22] MEDS: DULoxetine HCL 30 MG CAPSULE.DR PO SCH (10:38)
[2021-05-22] MEDS: PRENATAL VITAMINS W/ FOLIC ACID TABLET (FP) PO SCH (10:38)
[2021-05-22] MEDS: TIMOLOL 0.25% OPHTHALMIC SOL 5 ML BOTTLE OU SCH ×2 (10:39→22:14)
[2021-05-22] MEDS: LIDOCAINE 5% TOPICAL PATCH TP SCH (10:56)
[2021-05-22] MEDS ORDERED: LIDOCAINE PATCH REMOVAL MC SCH (22:00)
[2021-05-22] MEDS: THIAMINE HCL 100 MG TABLET (FP) PO SCH (22:09)
[2021-05-22] MEDS: MELATONIN 5 MG TABLETS PO SCH (22:09)
[2021-05-22] MEDS: LATANOPROST 0.005% OPHTH SOLN 2.5ML BOTTLE OU SCH (22:10)
[2021-05-23] MEDS ORDERED: LORazepam 0.5 MG TABLET PO ONE (05:00)
[2021-05-23 09:03] VITALS: BP 152/85; PULSE 64; TEMP 97.1
[2021-05-23] MEDS: GABAPENTIN 300 MG CAPSULE PO SCH (10:19)
[2021-05-23] MEDS: ASPIRIN 81 MG CHEWABLE TABLETS PO SCH (10:19)
[2021-05-23] MEDS: amLODIPine BESYLATE 5 MG TABLET (FP) PO SCH (10:19)
[2021-05-23] MEDS: NAPROXEN 500 MG TABLET PO SCH (10:19)
[2021-05-23] MEDS: NICOTINE 21 MG/24 HOURS TOPICAL PATCH TD SCH (10:19)
[2021-05-23] MEDS: PRENATAL VITAMINS W/ FOLIC ACID TABLET (FP) PO SCH (10:19)
[2021-05-23] MEDS: LIDOCAINE 5% TOPICAL PATCH TP SCH (10:21)
[2021-05-23] MEDS: TIMOLOL 0.25% OPHTHALMIC SOL 5 ML BOTTLE OU SCH (10:22)
[2021-05-23] MEDS: DULoxetine HCL 30 MG CAPSULE.DR PO SCH (10:22)
== END 2021-05-23 10:23 | disposition other institution (70) | DRG 774 ==
LOC: YASAS 12:57 → Y3N 05-20 09:56
PROVIDERS: ADMIT Allergy & Immunology; ATTEND Allergy & Immunology
PROC: HZ2ZZZZ Detoxification Services for Substance Abuse Treatment (ICD-10-PCS; principal; 2021-05-20)
DX: F10.230 Alcohol dependence with withdrawal, uncomplicated (principal); F14.20 Cocaine dependence, uncomplicated; F17.210 Nicotine dependence, cigarettes, uncomplicated; I10 Essential (primary) hypertension; H40.9 Unspecified glaucoma; K21.9 Gastro-esophageal reflux disease without esophagitis; M54.50 Low back pain, unspecified; G89.29 Other chronic pain; N40.0 Benign prostatic hyperplasia without lower urinary tract symptoms; R26.89 Other abnormalities of gait and mobility; I69.854 Hemiplegia and hemiparesis following other cerebrovascular disease affecting left non-dominant side; Z86.59 Personal history of other mental and behavioral disorders
CPT/HCPCS: 36415; 80053; 85027; 86780; C9803; U0003; U0005

== ENCOUNTER 2021-08-22 14:59 | Inpatient (IN) | payer OTHER ==
[2021-08-22] MEDS ORDERED: MAG HYDROX/AL HYDROX/SIMETH 30 ML UNIT-DOSE CUP PO PRN (20:09)
[2021-08-22] MEDS ORDERED: ACETAMINOPHEN 325 MG TABLET (FP) PO PRN ×2 (20:09)
[2021-08-22] MEDS ORDERED: DICYCLOMINE HCL 10 MG CAPSULE PO PRN (20:09)
[2021-08-22] MEDS ORDERED: MAGNESIUM HYDROX 2400MG/30ML ORAL SUSPENSION 30 ML CUP PO PRN (20:09)
[2021-08-22] MEDS ORDERED: ONDANSETRON *ODT* 4 MG TABLET SL PRN (20:09)
[2021-08-22] MEDS ORDERED: MAGNESIUM CITRATE 300 ML BOTTLE PO PRN (20:09)
[2021-08-22] MEDS ORDERED: MENTHOL/PHENOL 1 EACH UD MM PRN (20:09)
[2021-08-22] MEDS ORDERED: guaiFENesin 200 MG/10 ML 10 ML UNIT-DOSE CUPS PO PRN (20:09)
[2021-08-22] MEDS ORDERED: BISMUTH SUBSALICYLATE 524 MG/30 ML PO PRN (20:09)
[2021-08-22] MEDS ORDERED: P-EPHED 60MG/TRIPROLIDI 2.5MG TABLET PO PRN (20:09)
[2021-08-22] MEDS ORDERED: diazePAM 5 MG TABLET PO PRN (20:11)
[2021-08-22] MEDS ORDERED: CYCLOBENZAPRINE HCL 10 MG TABLET (FP) PO PRN (20:12)
[2021-08-22 22:50] VITALS: BMI 33.1
[2021-08-23] MEDS: THIAMINE HCL 100 MG TABLET (FP) PO SCH ×2 (02:15→22:36)
[2021-08-23] MEDS: MELATONIN 5 MG TABLETS PO SCH ×2 (02:16→22:35)
[2021-08-23] MEDS: amLODIPine BESYLATE 5 MG TABLET (FP) PO SCH ×2 (02:18→10:22)
[2021-08-23] MEDS: NAPROXEN 500 MG TABLET PO SCH ×3 (02:18→22:35)
[2021-08-23] MEDS: ASPIRIN 81 MG CHEWABLE TABLETS PO SCH ×2 (02:18→10:22)
[2021-08-23] MEDS: GABAPENTIN 300 MG CAPSULE PO SCH ×3 (02:18→22:35)
[2021-08-23] MEDS: LATANOPROST 0.005% OPHTH SOLN 2.5ML BOTTLE OU SCH ×2 (02:19→22:36)
[2021-08-23] MEDS: TIMOLOL 0.25% OPHTHALMIC SOL 5 ML BOTTLE OU SCH ×3 (02:19→22:35)
[2021-08-23] MEDS: PRENATAL VITAMINS W/ FOLIC ACID TABLET (FP) PO SCH (10:21)
[2021-08-23] MEDS: hydrOXYzine PAMOATE 25 MG CAPSULE (FP) PO PRN (10:22)
[2021-08-23 10:49] LABS: HEMATOCRIT 42.3 % (35.4-49); HEMOGLOBIN 13.4 GM/dL (11.7-16.9); MCH 29.3 pg (25.7-33.7); MCHC 31.6 g/dl (32.0-35.9); MEAN CELL VOLUME 92.8 fl (80-96); PLATELET COUNT 224 10^3/uL (134-434); RBC 4.56 M/mm3 (4.00-5.60); RDW 14.7 % (11.9-15.9); WHITE BLOOD COUNT 6.1 K/mm3 (4.0-10.0)
[2021-08-23 11:21] LABS: ALBUMIN 3.3 g/dl (3.4-5.0); BLOOD UREA NITROGEN 14.6 mg/dL (7-18); CALCIUM 8.8 mg/dL (8.5-10.1)
[2021-08-23 11:26] LABS: BILIRUBIN,TOTAL 0.4 mg/dL (0.2-1); TOT PROT 6.1 g/dl (6.4-8.2)
[2021-08-23] MEDS ORDERED: diazePAM 5 MG TABLET PO PRN (16:29)
[2021-08-23] MEDS ORDERED: diazePAM 5 MG TABLET PO SCH (22:00)
[2021-08-23] MEDS: guaiFENesin 600 MG TABLET.ER (FP) PO SCH (22:35)
[2021-08-24] MEDS: diazePAM 5 MG TABLET PO SCH ×2 (06:22→17:47)
[2021-08-24] MEDS ORDERED: DULoxetine HCL 30 MG CAPSULE.DR PO SCH (10:00)
[2021-08-24] MEDS: ASPIRIN 81 MG CHEWABLE TABLETS PO SCH (10:34)
[2021-08-24] MEDS: GABAPENTIN 300 MG CAPSULE PO SCH ×2 (10:34→22:32)
[2021-08-24] MEDS: amLODIPine BESYLATE 5 MG TABLET (FP) PO SCH (10:34)
[2021-08-24] MEDS: hydrOXYzine PAMOATE 25 MG CAPSULE (FP) PO PRN ×2 (10:34→17:47)
[2021-08-24] MEDS: guaiFENesin 600 MG TABLET.ER (FP) PO SCH ×2 (10:35→22:32)
[2021-08-24] MEDS: TIMOLOL 0.25% OPHTHALMIC SOL 5 ML BOTTLE OU SCH ×2 (10:37→22:41)
[2021-08-24] MEDS: PRENATAL VITAMINS W/ FOLIC ACID TABLET (FP) PO SCH (10:38)
[2021-08-24] MEDS: NAPROXEN 500 MG TABLET PO SCH ×2 (10:43→22:32)
[2021-08-24] MEDS: THIAMINE HCL 100 MG TABLET (FP) PO SCH (22:32)
[2021-08-24] MEDS: MELATONIN 5 MG TABLETS PO SCH (22:32)
[2021-08-24] MEDS: LATANOPROST 0.005% OPHTH SOLN 2.5ML BOTTLE OU SCH (22:40)
[2021-08-25] MEDS ORDERED: diazePAM 5 MG TABLET PO ONE (06:00)
[2021-08-25 09:50] VITALS: BP 123/65; PULSE 67; TEMP 98
== END 2021-08-25 09:49 | disposition home or self-care (01) | DRG 773 ==
LOC: YASAS 14:59 → UNDOADMIN 08-23 01:14 → Y6N 08-23 01:14
PROVIDERS: ADMIT Allergy & Immunology; ATTEND Allergy & Immunology
PROC: HZ2ZZZZ Detoxification Services for Substance Abuse Treatment (ICD-10-PCS; principal; 2021-08-23)
DX: F11.23 Opioid dependence with withdrawal (principal); F10.230 Alcohol dependence with withdrawal, uncomplicated; F13.20 Sedative, hypnotic or anxiolytic dependence, uncomplicated; F19.24 Other psychoactive substance dependence with psychoactive substance-induced mood disorder; F34.1 Dysthymic disorder; F41.9 Anxiety disorder, unspecified; F43.10 Post-traumatic stress disorder, unspecified; H40.9 Unspecified glaucoma; I10 Essential (primary) hypertension; M54.50 Low back pain, unspecified; G89.29 Other chronic pain; I69.854 Hemiplegia and hemiparesis following other cerebrovascular disease affecting left non-dominant side; Z87.891 Personal history of nicotine dependence
CPT/HCPCS: 36415; 80053; 85027; 86780; C9803-CS; Q0162; U0003; U0005

== ENCOUNTER 2021-10-26 13:23 | Inpatient (IN) | payer OTHER ==
[2021-10-26] MEDS ORDERED: ACETAMINOPHEN 325 MG TABLET (FP) PO PRN ×2 (15:25)
[2021-10-26] MEDS ORDERED: IBUPROFEN 400 MG TABLET (FP) PO PRN (15:25)
[2021-10-26] MEDS ORDERED: BISMUTH SUBSALICYLATE 524 MG/30 ML PO PRN (15:25)
[2021-10-26] MEDS ORDERED: MAGNESIUM HYDROX 2400MG/30ML ORAL SUSPENSION 30 ML CUP PO PRN (15:25)
[2021-10-26] MEDS ORDERED: METHOCARBAMOL 500 MG TABLET PO PRN (15:25)
[2021-10-26] MEDS ORDERED: MAG HYDROX/AL HYDROX/SIMETH 30 ML UNIT-DOSE CUP PO PRN (15:25)
[2021-10-26] MEDS ORDERED: MAGNESIUM CITRATE 300 ML BOTTLE PO PRN (15:25)
[2021-10-26] MEDS ORDERED: ONDANSETRON *ODT* 4 MG TABLET SL PRN (15:25)
[2021-10-26] MEDS ORDERED: MENTHOL/PHENOL 1 EACH UD MM PRN (15:25)
[2021-10-26] MEDS ORDERED: LOPERAMIDE HCL 2 MG CAPSULE PO PRN (15:25)
[2021-10-26 17:40] VITALS: BMI 34.1
[2021-10-26] MEDS: ASPIRIN 81 MG CHEWABLE TABLETS PO SCH (19:31)
[2021-10-26] MEDS: hydrOXYzine PAMOATE 25 MG CAPSULE (FP) PO PRN (19:31)
[2021-10-26] MEDS: amLODIPine BESYLATE 5 MG TABLET (FP) PO SCH (19:31)
[2021-10-26] MEDS: TIMOLOL 0.25% OPHTHALMIC SOL 5 ML BOTTLE OU SCH (23:43)
[2021-10-26] MEDS: LATANOPROST 0.005% OPHTH SOLN 2.5ML BOTTLE OU SCH (23:43)
[2021-10-26] MEDS: GABAPENTIN 300 MG CAPSULE PO SCH (23:43)
[2021-10-26] MEDS: MELATONIN 5 MG TABLETS PO PRN (23:43)
[2021-10-26] MEDS: THIAMINE HCL 100 MG TABLET (FP) PO SCH (23:43)
[2021-10-27] MEDS: GABAPENTIN 300 MG CAPSULE PO SCH ×2 (09:45→22:17)
[2021-10-27] MEDS: ASPIRIN 81 MG CHEWABLE TABLETS PO SCH (09:45)
[2021-10-27] MEDS: PRENATAL VITAMINS W/ FOLIC ACID TABLET (FP) PO SCH (09:45)
[2021-10-27] MEDS: amLODIPine BESYLATE 5 MG TABLET (FP) PO SCH (09:45)
[2021-10-27] MEDS: TIMOLOL 0.25% OPHTHALMIC SOL 5 ML BOTTLE OU SCH ×2 (09:45→22:18)
[2021-10-27 10:17] LABS: HEMATOCRIT 44.8 % (35.4-49); HEMOGLOBIN 14.6 GM/dL (11.7-16.9); MCH 29.9 pg (25.7-33.7); MCHC 32.5 g/dl (32.0-35.9); MEAN CELL VOLUME 92.2 fl (80-96); MEAN PLT VOLUME 7.7 fl (7.5-11.1); PLATELET COUNT 213 10^3/uL (134-434); RBC 4.86 M/mm3 (4.00-5.60); RDW 14.1 % (11.9-15.9); WHITE BLOOD COUNT 5.3 K/mm3 (4.0-10.0)
[2021-10-27] MEDS ORDERED: LORazepam 0.5 MG TABLET PO PRN (10:20)
[2021-10-27 10:27] LABS: ALBUMIN 3.8 g/dl (3.4-5.0); BLOOD UREA NITROGEN 10.8 mg/dL (7-18)
[2021-10-27 10:30] LABS: CREATININE 0.9 mg/dL (0.55-1.3)
[2021-10-27 10:32] LABS: BILIRUBIN,TOTAL 1.1 mg/dL (0.2-1); TOT PROT 6.9 g/dl (6.4-8.2)
[2021-10-27] MEDS ORDERED: POTASSIUM CHLORIDE TABS 20 MEQ TABLET.ER (FP) PO ONE ×2 (11:00→17:00)
[2021-10-27] MEDS: LORazepam 2 MG TABLET PO SCH ×3 (11:50→22:19)
[2021-10-27 12:09] LABS: SARS-CoV-2 NAA Not Detected (Not Detected)
[2021-10-27] MEDS: hydrOXYzine PAMOATE 25 MG CAPSULE (FP) PO PRN (17:57)
[2021-10-27] MEDS: THIAMINE HCL 100 MG TABLET (FP) PO SCH (22:17)
[2021-10-27] MEDS: LATANOPROST 0.005% OPHTH SOLN 2.5ML BOTTLE OU SCH (22:18)
[2021-10-27] MEDS: MELATONIN 5 MG TABLETS PO PRN (22:19)
[2021-10-28 07:07] LABS: SARS-CoV-2 NAA Not Detected (Not Detected)
[2021-10-28] MEDS: LORazepam 1 MG TABLET PO SCH ×4 (08:25→22:03)
[2021-10-28] MEDS: GABAPENTIN 300 MG CAPSULE PO SCH ×2 (10:33→22:03)
[2021-10-28] MEDS: ASPIRIN 81 MG CHEWABLE TABLETS PO SCH (10:34)
[2021-10-28] MEDS: PRENATAL VITAMINS W/ FOLIC ACID TABLET (FP) PO SCH (10:34)
[2021-10-28] MEDS: amLODIPine BESYLATE 5 MG TABLET (FP) PO SCH (10:34)
[2021-10-28] MEDS: DULoxetine HCL 30 MG CAPSULE.DR PO SCH (10:34)
[2021-10-28] MEDS: TIMOLOL 0.25% OPHTHALMIC SOL 5 ML BOTTLE OU SCH ×2 (11:07→22:54)
[2021-10-28] MEDS: MELATONIN 5 MG TABLETS PO PRN (22:02)
[2021-10-28] MEDS: THIAMINE HCL 100 MG TABLET (FP) PO SCH (22:02)
[2021-10-28] MEDS: hydrOXYzine PAMOATE 25 MG CAPSULE (FP) PO PRN (22:03)
[2021-10-28] MEDS: LATANOPROST 0.005% OPHTH SOLN 2.5ML BOTTLE OU SCH (22:54)
[2021-10-29] MEDS: LORazepam 0.5 MG TABLET PO SCH ×4 (06:44→22:10)
[2021-10-29] MEDS: TIMOLOL 0.25% OPHTHALMIC SOL 5 ML BOTTLE OU SCH ×2 (10:48→22:12)
[2021-10-29] MEDS: DULoxetine HCL 30 MG CAPSULE.DR PO SCH (10:48)
[2021-10-29] MEDS: ASPIRIN 81 MG CHEWABLE TABLETS PO SCH (10:48)
[2021-10-29] MEDS: GABAPENTIN 300 MG CAPSULE PO SCH ×2 (10:48→22:10)
[2021-10-29] MEDS: PRENATAL VITAMINS W/ FOLIC ACID TABLET (FP) PO SCH (10:48)
[2021-10-29] MEDS: amLODIPine BESYLATE 5 MG TABLET (FP) PO SCH (10:48)
[2021-10-29] MEDS: THIAMINE HCL 100 MG TABLET (FP) PO SCH (22:10)
[2021-10-29] MEDS: MELATONIN 5 MG TABLETS PO PRN (22:11)
[2021-10-29] MEDS: LATANOPROST 0.005% OPHTH SOLN 2.5ML BOTTLE OU SCH (22:12)
[2021-10-30] MEDS ORDERED: LORazepam 0.5 MG TABLET PO ONE (05:00)
[2021-10-30] MEDS: DULoxetine HCL 30 MG CAPSULE.DR PO SCH (10:56)
[2021-10-30] MEDS: PRENATAL VITAMINS W/ FOLIC ACID TABLET (FP) PO SCH (10:56)
[2021-10-30] MEDS: amLODIPine BESYLATE 5 MG TABLET (FP) PO SCH (10:56)
[2021-10-30] MEDS: ASPIRIN 81 MG CHEWABLE TABLETS PO SCH (10:56)
[2021-10-30] MEDS: GABAPENTIN 300 MG CAPSULE PO SCH ×2 (10:58→22:13)
[2021-10-30] MEDS: TIMOLOL 0.25% OPHTHALMIC SOL 5 ML BOTTLE OU SCH ×2 (11:02→22:13)
[2021-10-30] MEDS: LATANOPROST 0.005% OPHTH SOLN 2.5ML BOTTLE OU SCH (22:13)
[2021-10-30] MEDS: THIAMINE HCL 100 MG TABLET (FP) PO SCH (22:13)
[2021-10-30] MEDS: MELATONIN 5 MG TABLETS PO PRN (22:13)
[2021-10-31] MEDS: DULoxetine HCL 30 MG CAPSULE.DR PO SCH (10:28)
[2021-10-31] MEDS: GABAPENTIN 300 MG CAPSULE PO SCH (10:28)
[2021-10-31] MEDS: hydrOXYzine PAMOATE 25 MG CAPSULE (FP) PO PRN (10:28)
[2021-10-31] MEDS: TIMOLOL 0.25% OPHTHALMIC SOL 5 ML BOTTLE OU SCH (10:28)
[2021-10-31] MEDS: ASPIRIN 81 MG CHEWABLE TABLETS PO SCH (10:28)
[2021-10-31] MEDS: amLODIPine BESYLATE 5 MG TABLET (FP) PO SCH (10:28)
[2021-10-31] MEDS: PRENATAL VITAMINS W/ FOLIC ACID TABLET (FP) PO SCH (10:29)
[2021-10-31 13:07] VITALS: BP 112/70; PULSE 74; TEMP 97.6
== END 2021-10-31 14:24 | disposition other institution (70) | DRG 774 ==
LOC: YASAS 13:23 → Y3N 17:20
PROVIDERS: ADMIT Allergy & Immunology; ATTEND Allergy & Immunology
PROC: HZ2ZZZZ Detoxification Services for Substance Abuse Treatment (ICD-10-PCS; principal; 2021-10-26)
DX: F10.230 Alcohol dependence with withdrawal, uncomplicated (principal); F14.20 Cocaine dependence, uncomplicated; F13.20 Sedative, hypnotic or anxiolytic dependence, uncomplicated; F19.24 Other psychoactive substance dependence with psychoactive substance-induced mood disorder; F32.A Depression, unspecified; F43.10 Post-traumatic stress disorder, unspecified; E87.6 Hypokalemia; G62.9 Polyneuropathy, unspecified; I10 Essential (primary) hypertension; H40.9 Unspecified glaucoma; K21.9 Gastro-esophageal reflux disease without esophagitis; M54.50 Low back pain, unspecified; G89.29 Other chronic pain; N40.0 Benign prostatic hyperplasia without lower urinary tract symptoms; Z86.79 Personal history of other diseases of the circulatory system; Z87.891 Personal history of nicotine dependence; Z86.73 Personal history of transient ischemic attack (TIA), and cerebral infarction without residual deficits
CPT/HCPCS: 36415; 80053; 84132; 85027; 86780; C9803-CS; U0003; U0005

== ENCOUNTER 2021-10-31 14:46 | Inpatient (IN) | payer OTHER ==
[2021-10-31] MEDS ORDERED: NICOTINE 10 MG CARTRIDGE (INHALER) IH PRN (15:01)
[2021-10-31] MEDS ORDERED: guaiFENesin 200 MG/10 ML 10 ML UNIT-DOSE CUPS PO PRN (15:01)
[2021-10-31] MEDS ORDERED: MAGNESIUM HYDROX 2400MG/30ML ORAL SUSPENSION 30 ML CUP PO PRN (15:01)
[2021-10-31] MEDS ORDERED: MAG HYDROX/AL HYDROX/SIMETH 30 ML UNIT-DOSE CUP PO PRN (15:01)
[2021-10-31] MEDS ORDERED: MENTHOL/PHENOL 1 EACH UD MM PRN (15:01)
[2021-10-31] MEDS ORDERED: MAGNESIUM CITRATE 300 ML BOTTLE PO PRN (15:01)
[2021-10-31] MEDS ORDERED: P-EPHED 60MG/TRIPROLIDI 2.5MG TABLET PO PRN (15:01)
[2021-10-31] MEDS ORDERED: LOPERAMIDE HCL 2 MG CAPSULE PO PRN (15:01)
[2021-10-31] MEDS ORDERED: hydrOXYzine PAMOATE 25 MG CAPSULE (FP) PO PRN (15:05)
[2021-10-31] MEDS ORDERED: hydrOXYzine PAMOATE 25 MG CAPSULE (FP) PO SCH (18:00)
[2021-10-31] MEDS: METHOCARBAMOL 500 MG TABLET PO SCH ×2 (19:31→21:29)
[2021-10-31] MEDS: GABAPENTIN 300 MG CAPSULE PO SCH (21:29)
[2021-10-31] MEDS: MELATONIN 5 MG TABLETS PO SCH (21:29)
[2021-10-31] MEDS: LATANOPROST 0.005% OPHTH SOLN 2.5ML BOTTLE OU SCH (21:30)
[2021-10-31] MEDS: THIAMINE HCL 100 MG TABLET (FP) PO SCH (21:30)
[2021-10-31] MEDS: TIMOLOL 0.25% OPHTHALMIC SOL 5 ML BOTTLE OU SCH (21:30)
[2021-11-01] MEDS ORDERED: NICOTINE 7 MG/24 HOURS TOPICAL PATCH TD SCH (10:00)
[2021-11-01] MEDS: METHOCARBAMOL 500 MG TABLET PO SCH ×4 (10:03→21:30)
[2021-11-01] MEDS: GABAPENTIN 300 MG CAPSULE PO SCH ×2 (10:03→21:29)
[2021-11-01] MEDS: PRENATAL VITAMINS W/ FOLIC ACID TABLET (FP) PO SCH (10:03)
[2021-11-01] MEDS: DULoxetine HCL 30 MG CAPSULE.DR PO SCH (10:03)
[2021-11-01] MEDS: amLODIPine BESYLATE 5 MG TABLET (FP) PO SCH (10:03)
[2021-11-01] MEDS: TIMOLOL 0.25% OPHTHALMIC SOL 5 ML BOTTLE OU SCH ×2 (10:06→21:30)
[2021-11-01] MEDS: ASPIRIN 81 MG CHEWABLE TABLETS PO SCH (13:36)
[2021-11-01] MEDS: THIAMINE HCL 100 MG TABLET (FP) PO SCH (21:30)
[2021-11-01] MEDS: MELATONIN 5 MG TABLETS PO SCH (21:30)
[2021-11-01] MEDS: LATANOPROST 0.005% OPHTH SOLN 2.5ML BOTTLE OU SCH (21:31)
[2021-11-02] MEDS: METHOCARBAMOL 500 MG TABLET PO SCH ×4 (10:54→23:25)
[2021-11-02] MEDS: GABAPENTIN 300 MG CAPSULE PO SCH ×2 (10:54→23:25)
[2021-11-02] MEDS: amLODIPine BESYLATE 5 MG TABLET (FP) PO SCH (10:54)
[2021-11-02] MEDS: ASPIRIN 81 MG CHEWABLE TABLETS PO SCH (10:54)
[2021-11-02] MEDS: PRENATAL VITAMINS W/ FOLIC ACID TABLET (FP) PO SCH (10:55)
[2021-11-02] MEDS: DULoxetine HCL 30 MG CAPSULE.DR PO SCH (10:55)
[2021-11-02] MEDS: TIMOLOL 0.25% OPHTHALMIC SOL 5 ML BOTTLE OU SCH ×2 (10:56→23:25)
[2021-11-02] MEDS: LATANOPROST 0.005% OPHTH SOLN 2.5ML BOTTLE OU SCH (23:25)
[2021-11-02] MEDS: MELATONIN 5 MG TABLETS PO SCH (23:25)
[2021-11-02] MEDS: THIAMINE HCL 100 MG TABLET (FP) PO SCH (23:25)
[2021-11-03] MEDS: DULoxetine HCL 30 MG CAPSULE.DR PO SCH (09:50)
[2021-11-03] MEDS: ASPIRIN 81 MG CHEWABLE TABLETS PO SCH (09:50)
[2021-11-03] MEDS: PRENATAL VITAMINS W/ FOLIC ACID TABLET (FP) PO SCH (09:51)
[2021-11-03] MEDS: GABAPENTIN 300 MG CAPSULE PO SCH ×2 (09:51→21:22)
[2021-11-03] MEDS: METHOCARBAMOL 500 MG TABLET PO SCH ×4 (09:51→21:22)
[2021-11-03] MEDS: amLODIPine BESYLATE 5 MG TABLET (FP) PO SCH (09:51)
[2021-11-03] MEDS: TIMOLOL 0.25% OPHTHALMIC SOL 5 ML BOTTLE OU SCH ×2 (09:53→21:22)
[2021-11-03] MEDS: THIAMINE HCL 100 MG TABLET (FP) PO SCH (21:22)
[2021-11-03] MEDS: MELATONIN 5 MG TABLETS PO SCH (21:22)
[2021-11-03] MEDS: LATANOPROST 0.005% OPHTH SOLN 2.5ML BOTTLE OU SCH (21:23)
[2021-11-04] MEDS: DULoxetine HCL 30 MG CAPSULE.DR PO SCH (10:34)
[2021-11-04] MEDS: GABAPENTIN 300 MG CAPSULE PO SCH ×2 (10:34→21:10)
[2021-11-04] MEDS: ASPIRIN 81 MG CHEWABLE TABLETS PO SCH (10:34)
[2021-11-04] MEDS: amLODIPine BESYLATE 5 MG TABLET (FP) PO SCH (10:34)
[2021-11-04] MEDS: METHOCARBAMOL 500 MG TABLET PO SCH ×4 (10:34→21:10)
[2021-11-04] MEDS: PRENATAL VITAMINS W/ FOLIC ACID TABLET (FP) PO SCH (10:34)
[2021-11-04] MEDS: TIMOLOL 0.25% OPHTHALMIC SOL 5 ML BOTTLE OU SCH ×2 (10:35→23:10)
[2021-11-04] MEDS: MELATONIN 5 MG TABLETS PO SCH (21:10)
[2021-11-04] MEDS: THIAMINE HCL 100 MG TABLET (FP) PO SCH (23:10)
[2021-11-04] MEDS: LATANOPROST 0.005% OPHTH SOLN 2.5ML BOTTLE OU SCH (23:10)
[2021-11-05] MEDS: amLODIPine BESYLATE 5 MG TABLET (FP) PO SCH (09:42)
[2021-11-05] MEDS: GABAPENTIN 300 MG CAPSULE PO SCH ×2 (09:42→21:57)
[2021-11-05] MEDS: PRENATAL VITAMINS W/ FOLIC ACID TABLET (FP) PO SCH (09:42)
[2021-11-05] MEDS: ASPIRIN 81 MG CHEWABLE TABLETS PO SCH (09:42)
[2021-11-05] MEDS: TIMOLOL 0.25% OPHTHALMIC SOL 5 ML BOTTLE OU SCH ×2 (09:42→21:57)
[2021-11-05] MEDS: METHOCARBAMOL 500 MG TABLET PO SCH ×4 (09:42→21:57)
[2021-11-05] MEDS: DULoxetine HCL 30 MG CAPSULE.DR PO SCH (09:42)
[2021-11-05] MEDS: THIAMINE HCL 100 MG TABLET (FP) PO SCH (21:57)
[2021-11-05] MEDS: MELATONIN 5 MG TABLETS PO SCH (21:57)
[2021-11-05] MEDS: LATANOPROST 0.005% OPHTH SOLN 2.5ML BOTTLE OU SCH (21:59)
[2021-11-06] MEDS: amLODIPine BESYLATE 5 MG TABLET (FP) PO SCH (09:48)
[2021-11-06] MEDS: PRENATAL VITAMINS W/ FOLIC ACID TABLET (FP) PO SCH (09:48)
[2021-11-06] MEDS: METHOCARBAMOL 500 MG TABLET PO SCH ×4 (09:48→21:27)
[2021-11-06] MEDS: GABAPENTIN 300 MG CAPSULE PO SCH ×2 (09:48→21:27)
[2021-11-06] MEDS: DULoxetine HCL 30 MG CAPSULE.DR PO SCH (09:48)
[2021-11-06] MEDS: ASPIRIN 81 MG CHEWABLE TABLETS PO SCH (09:48)
[2021-11-06] MEDS: TIMOLOL 0.25% OPHTHALMIC SOL 5 ML BOTTLE OU SCH ×2 (09:49→22:33)
[2021-11-06] MEDS: MELATONIN 5 MG TABLETS PO SCH (21:27)
[2021-11-06] MEDS: THIAMINE HCL 100 MG TABLET (FP) PO SCH (21:27)
[2021-11-06] MEDS: LATANOPROST 0.005% OPHTH SOLN 2.5ML BOTTLE OU SCH (22:33)
[2021-11-07] MEDS: ASPIRIN 81 MG CHEWABLE TABLETS PO SCH (10:19)
[2021-11-07] MEDS: PRENATAL VITAMINS W/ FOLIC ACID TABLET (FP) PO SCH (10:19)
[2021-11-07] MEDS: DULoxetine HCL 30 MG CAPSULE.DR PO SCH (10:19)
[2021-11-07] MEDS: METHOCARBAMOL 500 MG TABLET PO SCH ×4 (10:19→21:44)
[2021-11-07] MEDS: GABAPENTIN 300 MG CAPSULE PO SCH ×2 (10:19→21:44)
[2021-11-07] MEDS: amLODIPine BESYLATE 5 MG TABLET (FP) PO SCH (10:19)
[2021-11-07] MEDS: TIMOLOL 0.25% OPHTHALMIC SOL 5 ML BOTTLE OU SCH ×2 (10:20→21:46)
[2021-11-07] MEDS: ACETAMINOPHEN 325 MG TABLET (FP) PO PRN (17:19)
[2021-11-07] MEDS: THIAMINE HCL 100 MG TABLET (FP) PO SCH (21:44)
[2021-11-07] MEDS: MELATONIN 5 MG TABLETS PO SCH (21:44)
[2021-11-07] MEDS: LATANOPROST 0.005% OPHTH SOLN 2.5ML BOTTLE OU SCH (21:46)
[2021-11-08] MEDS: ACETAMINOPHEN 325 MG TABLET (FP) PO PRN (10:47)
[2021-11-08] MEDS: METHOCARBAMOL 500 MG TABLET PO SCH ×4 (10:47→21:12)
[2021-11-08] MEDS: GABAPENTIN 300 MG CAPSULE PO SCH ×2 (10:47→21:13)
[2021-11-08] MEDS: DULoxetine HCL 30 MG CAPSULE.DR PO SCH (10:47)
[2021-11-08] MEDS: PRENATAL VITAMINS W/ FOLIC ACID TABLET (FP) PO SCH (10:47)
[2021-11-08] MEDS: ASPIRIN 81 MG CHEWABLE TABLETS PO SCH (10:47)
[2021-11-08] MEDS: amLODIPine BESYLATE 5 MG TABLET (FP) PO SCH (10:47)
[2021-11-08] MEDS: TIMOLOL 0.25% OPHTHALMIC SOL 5 ML BOTTLE OU SCH ×2 (11:09→21:13)
[2021-11-08] MEDS: MELATONIN 5 MG TABLETS PO SCH (21:12)
[2021-11-08] MEDS: THIAMINE HCL 100 MG TABLET (FP) PO SCH (21:13)
[2021-11-08] MEDS: LATANOPROST 0.005% OPHTH SOLN 2.5ML BOTTLE OU SCH (21:14)
[2021-11-09] MEDS: GABAPENTIN 300 MG CAPSULE PO SCH ×2 (10:32→21:26)
[2021-11-09] MEDS: DULoxetine HCL 30 MG CAPSULE.DR PO SCH (10:32)
[2021-11-09] MEDS: PRENATAL VITAMINS W/ FOLIC ACID TABLET (FP) PO SCH (10:32)
[2021-11-09] MEDS: METHOCARBAMOL 500 MG TABLET PO SCH ×4 (10:32→21:26)
[2021-11-09] MEDS: amLODIPine BESYLATE 5 MG TABLET (FP) PO SCH (10:32)
[2021-11-09] MEDS: ASPIRIN 81 MG CHEWABLE TABLETS PO SCH (10:33)
[2021-11-09] MEDS: TIMOLOL 0.25% OPHTHALMIC SOL 5 ML BOTTLE OU SCH ×2 (10:33→21:26)
[2021-11-09] MEDS: IBUPROFEN 400 MG TABLET (FP) PO PRN (14:24)
[2021-11-09] MEDS: MELATONIN 5 MG TABLETS PO SCH (21:26)
[2021-11-09] MEDS: THIAMINE HCL 100 MG TABLET (FP) PO SCH (21:26)
[2021-11-09] MEDS: LATANOPROST 0.005% OPHTH SOLN 2.5ML BOTTLE OU SCH (21:26)
[2021-11-10] MEDS: METHOCARBAMOL 500 MG TABLET PO SCH ×4 (10:49→21:11)
[2021-11-10] MEDS: GABAPENTIN 300 MG CAPSULE PO SCH ×2 (10:49→21:12)
[2021-11-10] MEDS: PRENATAL VITAMINS W/ FOLIC ACID TABLET (FP) PO SCH (10:49)
[2021-11-10] MEDS: ASPIRIN 81 MG CHEWABLE TABLETS PO SCH (10:50)
[2021-11-10] MEDS: amLODIPine BESYLATE 5 MG TABLET (FP) PO SCH (10:50)
[2021-11-10] MEDS: DULoxetine HCL 30 MG CAPSULE.DR PO SCH (10:50)
[2021-11-10] MEDS: TIMOLOL 0.25% OPHTHALMIC SOL 5 ML BOTTLE OU SCH ×2 (10:51→21:12)
[2021-11-10] MEDS: THIAMINE HCL 100 MG TABLET (FP) PO SCH (21:11)
[2021-11-10] MEDS: MELATONIN 5 MG TABLETS PO SCH (21:11)
[2021-11-10] MEDS: LATANOPROST 0.005% OPHTH SOLN 2.5ML BOTTLE OU SCH (21:12)
[2021-11-11] MEDS: ASPIRIN 81 MG CHEWABLE TABLETS PO SCH (09:45)
[2021-11-11] MEDS: amLODIPine BESYLATE 5 MG TABLET (FP) PO SCH (09:46)
[2021-11-11] MEDS: GABAPENTIN 300 MG CAPSULE PO SCH ×2 (09:46→21:33)
[2021-11-11] MEDS: METHOCARBAMOL 500 MG TABLET PO SCH ×4 (09:46→21:32)
[2021-11-11] MEDS: DULoxetine HCL 30 MG CAPSULE.DR PO SCH (09:46)
[2021-11-11] MEDS: PRENATAL VITAMINS W/ FOLIC ACID TABLET (FP) PO SCH (09:47)
[2021-11-11] MEDS: TIMOLOL 0.25% OPHTHALMIC SOL 5 ML BOTTLE OU SCH ×2 (09:47→21:33)
[2021-11-11] MEDS ORDERED: BENZOCAINE 20 % GEL TUBE MM PRN (12:35)
[2021-11-11] MEDS: IBUPROFEN 400 MG TABLET (FP) PO PRN (17:00)
[2021-11-11] MEDS: THIAMINE HCL 100 MG TABLET (FP) PO SCH (21:32)
[2021-11-11] MEDS: MELATONIN 5 MG TABLETS PO SCH (21:32)
[2021-11-11] MEDS: LATANOPROST 0.005% OPHTH SOLN 2.5ML BOTTLE OU SCH (21:33)
[2021-11-12] MEDS: amLODIPine BESYLATE 5 MG TABLET (FP) PO SCH (09:25)
[2021-11-12] MEDS: PRENATAL VITAMINS W/ FOLIC ACID TABLET (FP) PO SCH (09:25)
[2021-11-12] MEDS: ASPIRIN 81 MG CHEWABLE TABLETS PO SCH (09:25)
[2021-11-12] MEDS: GABAPENTIN 300 MG CAPSULE PO SCH ×2 (09:26→21:53)
[2021-11-12] MEDS: METHOCARBAMOL 500 MG TABLET PO SCH ×4 (09:26→21:56)
[2021-11-12] MEDS: DULoxetine HCL 30 MG CAPSULE.DR PO SCH (09:26)
[2021-11-12] MEDS: TIMOLOL 0.25% OPHTHALMIC SOL 5 ML BOTTLE OU SCH ×2 (10:25→21:56)
[2021-11-12] MEDS: MELATONIN 5 MG TABLETS PO SCH (21:53)
[2021-11-12] MEDS: LATANOPROST 0.005% OPHTH SOLN 2.5ML BOTTLE OU SCH (21:56)
[2021-11-12] MEDS: THIAMINE HCL 100 MG TABLET (FP) PO SCH (21:56)
[2021-11-13] MEDS: amLODIPine BESYLATE 5 MG TABLET (FP) PO SCH (09:35)
[2021-11-13] MEDS: PRENATAL VITAMINS W/ FOLIC ACID TABLET (FP) PO SCH (09:35)
[2021-11-13] MEDS: ASPIRIN 81 MG CHEWABLE TABLETS PO SCH (09:35)
[2021-11-13] MEDS: GABAPENTIN 300 MG CAPSULE PO SCH ×2 (10:59→22:00)
[2021-11-13] MEDS: DULoxetine HCL 30 MG CAPSULE.DR PO SCH (10:59)
[2021-11-13] MEDS: METHOCARBAMOL 500 MG TABLET PO SCH ×4 (10:59→22:00)
[2021-11-13] MEDS: TIMOLOL 0.25% OPHTHALMIC SOL 5 ML BOTTLE OU SCH ×2 (10:59→22:00)
[2021-11-13] MEDS: LATANOPROST 0.005% OPHTH SOLN 2.5ML BOTTLE OU SCH (22:00)
[2021-11-13] MEDS: THIAMINE HCL 100 MG TABLET (FP) PO SCH (22:00)
[2021-11-13] MEDS: MELATONIN 5 MG TABLETS PO SCH (22:00)
[2021-11-14 07:54] VITALS: TEMP 96.3
[2021-11-14] MEDS: amLODIPine BESYLATE 5 MG TABLET (FP) PO SCH (09:39)
[2021-11-14] MEDS: GABAPENTIN 300 MG CAPSULE PO SCH (09:39)
[2021-11-14] MEDS: TIMOLOL 0.25% OPHTHALMIC SOL 5 ML BOTTLE OU SCH (09:39)
[2021-11-14] MEDS: ASPIRIN 81 MG CHEWABLE TABLETS PO SCH (09:39)
[2021-11-14] MEDS: DULoxetine HCL 30 MG CAPSULE.DR PO SCH (09:39)
[2021-11-14] MEDS: METHOCARBAMOL 500 MG TABLET PO SCH (09:40)
[2021-11-14] MEDS: PRENATAL VITAMINS W/ FOLIC ACID TABLET (FP) PO SCH (09:40)
[2021-11-14 10:50] VITALS: BP 123/66; PULSE 78
== END 2021-11-14 09:55 | disposition home or self-care (01) | DRG 772 ==
LOC: YASAS 14:46 → Y3W 14:47
PROVIDERS: ADMIT Allergy & Immunology; ATTEND Allergy & Immunology
PROC: HZ42ZZZ Group Counseling for Substance Abuse Treatment, Cognitive-Behavioral (ICD-10-PCS; principal; 2021-10-31)
DX: F10.20 Alcohol dependence, uncomplicated (principal); I10 Essential (primary) hypertension; H40.9 Unspecified glaucoma; K13.79 Other lesions of oral mucosa; M79.2 Neuralgia and neuritis, unspecified; Z87.891 Personal history of nicotine dependence

== ENCOUNTER 2022-02-14 10:51 | Inpatient (IN) | payer OTHER ==
[2022-02-14 11:40] VITALS: BMI 32.5
[2022-02-14] MEDS ORDERED: MAG HYDROX/AL HYDROX/SIMETH 30 ML UNIT-DOSE CUP PO PRN (12:04)
[2022-02-14] MEDS ORDERED: DICYCLOMINE HCL 10 MG CAPSULE PO PRN (12:04)
[2022-02-14] MEDS ORDERED: IBUPROFEN 600 MG TABLET (FP) PO PRN (12:04)
[2022-02-14] MEDS ORDERED: MAGNESIUM HYDROX 2400MG/30ML ORAL SUSPENSION 30 ML CUP PO PRN (12:04)
[2022-02-14] MEDS ORDERED: BENZOCAINE/MENTHOL (CHLORASEPTIC ) LOZENGE MM PRN (12:04)
[2022-02-14] MEDS ORDERED: LOPERAMIDE HCL 2 MG CAPSULE PO PRN (12:04)
[2022-02-14] MEDS ORDERED: BISMUTH SUBSALICYLATE 262 MG/15 ML BTL PO PRN (12:04)
[2022-02-14] MEDS ORDERED: NICOTINE 10 MG CARTRIDGE (INHALER) IH PRN (12:04)
[2022-02-14] MEDS ORDERED: diazePAM 5 MG TABLET PO PRN (12:04)
[2022-02-14] MEDS ORDERED: IBUPROFEN 400 MG TABLET (FP) PO PRN (12:04)
[2022-02-14] MEDS ORDERED: MAGNESIUM CITRATE 300 ML BOTTLE PO PRN (12:04)
[2022-02-14] MEDS ORDERED: ACETAMINOPHEN 325 MG TABLET (FP) PO PRN ×2 (12:04)
[2022-02-14] MEDS ORDERED: ONDANSETRON *ODT* 4 MG TABLET SL PRN (12:04)
[2022-02-14] MEDS: hydrOXYzine PAMOATE 25 MG CAPSULE (FP) PO SCH ×3 (13:25→22:23)
[2022-02-14] MEDS: PRENATAL VITAMINS W/ FOLIC ACID TABLET (FP) PO SCH (13:25)
[2022-02-14] MEDS: NICOTINE 14 MG/24 HOURS TOPICAL PATCH TD SCH (13:28)
[2022-02-14] MEDS: diazePAM 5 MG TABLET PO SCH ×2 (17:43→22:23)
[2022-02-14] MEDS: THIAMINE HCL 100 MG TABLET (FP) PO SCH (22:23)
[2022-02-14] MEDS: GABAPENTIN 300 MG CAPSULE PO SCH (22:23)
[2022-02-14] MEDS: MELATONIN 5 MG TABLETS PO SCH (22:23)
[2022-02-14] MEDS: HYDROCORTISONE 2.5% TOPICAL CREAM 30 GM TUBE TP SCH (23:00)
[2022-02-14] MEDS: TIMOLOL 0.25% OPHTHALMIC SOL 5 ML BOTTLE OU SCH (23:00)
[2022-02-14] MEDS: LATANOPROST 0.005% OPHTH SOLN 2.5ML BOTTLE OU SCH (23:01)
[2022-02-15] MEDS: diazePAM 5 MG TABLET PO SCH ×3 (07:17→19:25)
[2022-02-15] MEDS: hydrOXYzine PAMOATE 25 MG CAPSULE (FP) PO SCH ×4 (07:17→19:25)
[2022-02-15 08:35] LABS: CALCIUM 8.8 mg/dL (8.5-10.1)
[2022-02-15 08:36] LABS: ALBUMIN 3.6 g/dl (3.4-5.0); BLOOD UREA NITROGEN 7.2 mg/dL (7-18)
[2022-02-15 08:40] LABS: TOT PROT 6.7 g/dl (6.4-8.2)
[2022-02-15 08:41] LABS: BILIRUBIN,TOTAL 0.5 mg/dL (0.2-1)
[2022-02-15 09:01] LABS: HEMATOCRIT 43.6 % (35.4-49); HEMOGLOBIN 14.1 GM/dL (11.7-16.9); MCHC 32.3 g/dl (32.0-35.9); MEAN CELL VOLUME 92.8 fl (80-96); MEAN PLT VOLUME 7.8 fl (7.5-11.1); PLATELET COUNT 250 10^3/uL (134-434); RDW 14.4 % (11.9-15.9); WHITE BLOOD COUNT 7.2 K/mm3 (4.0-10.0)
[2022-02-15] MEDS: NICOTINE 14 MG/24 HOURS TOPICAL PATCH TD SCH (10:27)
[2022-02-15] MEDS: DULoxetine HCL 30 MG CAPSULE.DR PO SCH (10:27)
[2022-02-15] MEDS: amLODIPine BESYLATE 5 MG TABLET (FP) PO SCH (10:27)
[2022-02-15] MEDS: ASPIRIN 81 MG CHEWABLE TABLETS PO SCH (10:27)
[2022-02-15] MEDS: GABAPENTIN 300 MG CAPSULE PO SCH (10:27)
[2022-02-15] MEDS: TIMOLOL 0.25% OPHTHALMIC SOL 5 ML BOTTLE OU SCH (10:27)
[2022-02-15] MEDS: PRENATAL VITAMINS W/ FOLIC ACID TABLET (FP) PO SCH (10:27)
[2022-02-15] MEDS: HYDROCORTISONE 2.5% TOPICAL CREAM 30 GM TUBE TP SCH (10:27)
[2022-02-16] MEDS: GABAPENTIN 300 MG CAPSULE PO SCH ×3 (00:26→22:22)
[2022-02-16] MEDS: hydrOXYzine PAMOATE 25 MG CAPSULE (FP) PO SCH ×6 (00:26→22:22)
[2022-02-16] MEDS: LATANOPROST 0.005% OPHTH SOLN 2.5ML BOTTLE OU SCH ×2 (00:26→22:21)
[2022-02-16] MEDS: THIAMINE HCL 100 MG TABLET (FP) PO SCH ×2 (00:26→22:22)
[2022-02-16] MEDS: diazePAM 5 MG TABLET PO SCH ×4 (00:26→22:22)
[2022-02-16] MEDS: HYDROCORTISONE 2.5% TOPICAL CREAM 30 GM TUBE TP SCH ×3 (00:26→22:21)
[2022-02-16] MEDS: MELATONIN 5 MG TABLETS PO SCH ×2 (00:26→22:21)
[2022-02-16] MEDS: TIMOLOL 0.25% OPHTHALMIC SOL 5 ML BOTTLE OU SCH ×3 (00:26→22:21)
[2022-02-16] MEDS: ASPIRIN 81 MG CHEWABLE TABLETS PO SCH (10:43)
[2022-02-16] MEDS: DULoxetine HCL 30 MG CAPSULE.DR PO SCH (10:43)
[2022-02-16] MEDS: amLODIPine BESYLATE 5 MG TABLET (FP) PO SCH (10:43)
[2022-02-16] MEDS: PRENATAL VITAMINS W/ FOLIC ACID TABLET (FP) PO SCH (10:43)
[2022-02-16] MEDS: NICOTINE 14 MG/24 HOURS TOPICAL PATCH TD SCH (10:44)
[2022-02-16] MEDS: METHOCARBAMOL 500 MG TABLET PO PRN (10:45)
[2022-02-16] MEDS: PANTOPRAZOLE 40 MG TABLET PO SCH (15:45)
[2022-02-17] MEDS: diazePAM 5 MG TABLET PO SCH ×2 (07:29→20:11)
[2022-02-17] MEDS: hydrOXYzine PAMOATE 25 MG CAPSULE (FP) PO SCH ×5 (07:29→22:56)
[2022-02-17] MEDS: HYDROCORTISONE 2.5% TOPICAL CREAM 30 GM TUBE TP SCH ×2 (10:09→22:56)
[2022-02-17] MEDS: PANTOPRAZOLE 40 MG TABLET PO SCH (10:10)
[2022-02-17] MEDS: DULoxetine HCL 30 MG CAPSULE.DR PO SCH (10:10)
[2022-02-17] MEDS: TIMOLOL 0.25% OPHTHALMIC SOL 5 ML BOTTLE OU SCH ×2 (10:10→22:56)
[2022-02-17] MEDS: GABAPENTIN 300 MG CAPSULE PO SCH ×2 (10:11→22:56)
[2022-02-17] MEDS: amLODIPine BESYLATE 5 MG TABLET (FP) PO SCH (10:11)
[2022-02-17] MEDS: PRENATAL VITAMINS W/ FOLIC ACID TABLET (FP) PO SCH (10:11)
[2022-02-17] MEDS: METHOCARBAMOL 500 MG TABLET PO PRN (10:11)
[2022-02-17] MEDS: ASPIRIN 81 MG CHEWABLE TABLETS PO SCH (10:11)
[2022-02-17] MEDS: NICOTINE 14 MG/24 HOURS TOPICAL PATCH TD SCH (10:11)
[2022-02-17 14:25] LABS: HEMATOCRIT 40.1 % (35.4-49); HEMOGLOBIN 13.2 GM/dL (11.7-16.9); MCH 30.4 pg (25.7-33.7); MEAN CELL VOLUME 92.3 fl (80-96); MEAN PLT VOLUME 8.2 fl (7.5-11.1); PLATELET COUNT 206 10^3/uL (134-434); RBC 4.34 M/mm3 (4.00-5.60); RDW 14.1 % (11.9-15.9); WHITE BLOOD COUNT 5.2 K/mm3 (4.0-10.0)
[2022-02-17] MEDS: THIAMINE HCL 100 MG TABLET (FP) PO SCH (22:56)
[2022-02-17] MEDS: LATANOPROST 0.005% OPHTH SOLN 2.5ML BOTTLE OU SCH (22:56)
[2022-02-17] MEDS: MELATONIN 5 MG TABLETS PO SCH (22:56)
[2022-02-18] MEDS ORDERED: diazePAM 5 MG TABLET PO ONE (06:00)
[2022-02-18] MEDS: hydrOXYzine PAMOATE 25 MG CAPSULE (FP) PO SCH ×2 (07:29→10:14)
[2022-02-18] MEDS: HYDROCORTISONE 2.5% TOPICAL CREAM 30 GM TUBE TP SCH (10:14)
[2022-02-18] MEDS: ASPIRIN 81 MG CHEWABLE TABLETS PO SCH (10:14)
[2022-02-18] MEDS: DULoxetine HCL 30 MG CAPSULE.DR PO SCH (10:14)
[2022-02-18] MEDS: NICOTINE 14 MG/24 HOURS TOPICAL PATCH TD SCH (10:15)
[2022-02-18] MEDS: PANTOPRAZOLE 40 MG TABLET PO SCH (10:15)
[2022-02-18] MEDS: GABAPENTIN 300 MG CAPSULE PO SCH (10:15)
[2022-02-18] MEDS: amLODIPine BESYLATE 5 MG TABLET (FP) PO SCH (10:15)
[2022-02-18] MEDS: PRENATAL VITAMINS W/ FOLIC ACID TABLET (FP) PO SCH (10:15)
[2022-02-18] MEDS: TIMOLOL 0.25% OPHTHALMIC SOL 5 ML BOTTLE OU SCH (10:15)
[2022-02-18 13:26] VITALS: BP 149/76; PULSE 77; TEMP 97.1
== END 2022-02-18 14:03 | disposition home or self-care (01) | DRG 774 ==
LOC: YASAS 10:51 → Y6N 12:15 → Y3N 12:17
PROVIDERS: ADMIT Allergy & Immunology; ATTEND Surgery
PROC: HZ2ZZZZ Detoxification Services for Substance Abuse Treatment (ICD-10-PCS; principal; 2022-02-14)
DX: F10.230 Alcohol dependence with withdrawal, uncomplicated (principal); F13.20 Sedative, hypnotic or anxiolytic dependence, uncomplicated; F14.20 Cocaine dependence, uncomplicated; F17.210 Nicotine dependence, cigarettes, uncomplicated; F43.10 Post-traumatic stress disorder, unspecified; G62.9 Polyneuropathy, unspecified; I10 Essential (primary) hypertension; H40.9 Unspecified glaucoma; K21.9 Gastro-esophageal reflux disease without esophagitis; K62.5 Hemorrhage of anus and rectum; Z86.73 Personal history of transient ischemic attack (TIA), and cerebral infarction without residual deficits; Z87.19 Personal history of other diseases of the digestive system
CPT/HCPCS: 36415; 80053; 85027; 86780; C9803-CS; Q0162; U0003; U0005

== ENCOUNTER 2022-02-18 13:42 | Inpatient (IN) | payer OTHER ==
[2022-02-18] MEDS ORDERED: MAGNESIUM HYDROX 2400MG/30ML ORAL SUSPENSION 30 ML CUP PO PRN (15:03)
[2022-02-18] MEDS ORDERED: LOPERAMIDE HCL 2 MG CAPSULE PO PRN (15:03)
[2022-02-18] MEDS ORDERED: ACETAMINOPHEN 325 MG TABLET (FP) PO PRN (15:03)
[2022-02-18] MEDS ORDERED: P-EPHED 60MG/TRIPROLIDI 2.5MG TABLET PO PRN (15:03)
[2022-02-18] MEDS ORDERED: MAGNESIUM CITRATE 300 ML BOTTLE PO PRN (15:03)
[2022-02-18] MEDS ORDERED: guaiFENesin 200 MG/10 ML 10 ML UNIT-DOSE CUPS PO PRN (15:03)
[2022-02-18] MEDS ORDERED: MAG HYDROX/AL HYDROX/SIMETH 30 ML UNIT-DOSE CUP PO PRN (15:03)
[2022-02-18] MEDS ORDERED: NICOTINE 10 MG CARTRIDGE (INHALER) IH PRN (15:03)
[2022-02-18] MEDS ORDERED: BENZOCAINE 28 GM HEMORRHOIDAL OINTMENT PR PRN (15:08)
[2022-02-18] MEDS: PRENATAL VITAMINS W/ FOLIC ACID TABLET (FP) PO SCH (15:38)
[2022-02-18] MEDS: NICOTINE 7 MG/24 HOURS TOPICAL PATCH TD SCH (15:38)
[2022-02-18] MEDS: hydrOXYzine PAMOATE 25 MG CAPSULE (FP) PO SCH ×2 (17:02→21:12)
[2022-02-18] MEDS: THIAMINE HCL 100 MG TABLET (FP) PO SCH (21:11)
[2022-02-18] MEDS: MELATONIN 5 MG TABLETS PO SCH (21:11)
[2022-02-18] MEDS: GABAPENTIN 300 MG CAPSULE PO SCH (21:13)
[2022-02-18] MEDS: NAPROXEN 500 MG TABLET PO SCH (21:13)
[2022-02-18] MEDS: TIMOLOL 0.25% OPHTHALMIC SOL 5 ML BOTTLE OU SCH (21:41)
[2022-02-18] MEDS: LATANOPROST 0.005% OPHTH SOLN 2.5ML BOTTLE OU SCH (21:41)
[2022-02-19] MEDS: hydrOXYzine PAMOATE 25 MG CAPSULE (FP) PO SCH ×5 (06:57→21:20)
[2022-02-19] MEDS: GABAPENTIN 300 MG CAPSULE PO SCH ×2 (10:00→21:19)
[2022-02-19] MEDS: NAPROXEN 500 MG TABLET PO SCH ×2 (10:00→21:19)
[2022-02-19] MEDS: ASPIRIN 81 MG CHEWABLE TABLETS PO SCH (10:00)
[2022-02-19] MEDS: DULoxetine HCL 30 MG CAPSULE.DR PO SCH (10:00)
[2022-02-19] MEDS: amLODIPine BESYLATE 5 MG TABLET (FP) PO SCH (10:00)
[2022-02-19] MEDS ORDERED: DULoxetine HCL 30 MG CAPSULE.DR PO SCH (10:00)
[2022-02-19] MEDS: NICOTINE 7 MG/24 HOURS TOPICAL PATCH TD SCH (10:01)
[2022-02-19] MEDS: PRENATAL VITAMINS W/ FOLIC ACID TABLET (FP) PO SCH (10:01)
[2022-02-19] MEDS: TIMOLOL 0.25% OPHTHALMIC SOL 5 ML BOTTLE OU SCH ×2 (10:02→21:20)
[2022-02-19] MEDS: MELATONIN 5 MG TABLETS PO SCH (21:19)
[2022-02-19] MEDS: THIAMINE HCL 100 MG TABLET (FP) PO SCH (21:19)
[2022-02-19] MEDS: LATANOPROST 0.005% OPHTH SOLN 2.5ML BOTTLE OU SCH (21:20)
[2022-02-20] MEDS: hydrOXYzine PAMOATE 25 MG CAPSULE (FP) PO SCH ×5 (07:33→21:12)
[2022-02-20] MEDS: TIMOLOL 0.25% OPHTHALMIC SOL 5 ML BOTTLE OU SCH ×2 (09:52→21:14)
[2022-02-20] MEDS: DULoxetine HCL 30 MG CAPSULE.DR PO SCH (09:53)
[2022-02-20] MEDS: GABAPENTIN 300 MG CAPSULE PO SCH ×2 (09:53→21:12)
[2022-02-20] MEDS: ASPIRIN 81 MG CHEWABLE TABLETS PO SCH (09:53)
[2022-02-20] MEDS: NAPROXEN 500 MG TABLET PO SCH ×2 (09:54→21:12)
[2022-02-20] MEDS: PRENATAL VITAMINS W/ FOLIC ACID TABLET (FP) PO SCH (09:54)
[2022-02-20] MEDS: amLODIPine BESYLATE 5 MG TABLET (FP) PO SCH (09:54)
[2022-02-20] MEDS: NICOTINE 7 MG/24 HOURS TOPICAL PATCH TD SCH (09:55)
[2022-02-20] MEDS: THIAMINE HCL 100 MG TABLET (FP) PO SCH (21:12)
[2022-02-20] MEDS: MELATONIN 5 MG TABLETS PO SCH (21:12)
[2022-02-20] MEDS: DOCUSATE SODIUM 100 MG CAPSULE (FP) PO SCH (21:13)
[2022-02-20] MEDS: LATANOPROST 0.005% OPHTH SOLN 2.5ML BOTTLE OU SCH (21:14)
[2022-02-21] MEDS: hydrOXYzine PAMOATE 25 MG CAPSULE (FP) PO SCH ×5 (06:44→21:31)
[2022-02-21] MEDS: NICOTINE 7 MG/24 HOURS TOPICAL PATCH TD SCH (10:31)
[2022-02-21] MEDS: TIMOLOL 0.25% OPHTHALMIC SOL 5 ML BOTTLE OU SCH ×2 (10:31→21:33)
[2022-02-21] MEDS: NAPROXEN 500 MG TABLET PO SCH ×2 (10:32→21:31)
[2022-02-21] MEDS: GABAPENTIN 300 MG CAPSULE PO SCH ×2 (10:32→21:31)
[2022-02-21] MEDS: DULoxetine HCL 30 MG CAPSULE.DR PO SCH (10:32)
[2022-02-21] MEDS: PRENATAL VITAMINS W/ FOLIC ACID TABLET (FP) PO SCH (10:32)
[2022-02-21] MEDS: amLODIPine BESYLATE 5 MG TABLET (FP) PO SCH (10:32)
[2022-02-21] MEDS: ASPIRIN 81 MG CHEWABLE TABLETS PO SCH (10:32)
[2022-02-21] MEDS: MELATONIN 5 MG TABLETS PO SCH (21:31)
[2022-02-21] MEDS: DOCUSATE SODIUM 100 MG CAPSULE (FP) PO SCH (21:31)
[2022-02-21] MEDS: THIAMINE HCL 100 MG TABLET (FP) PO SCH (21:32)
[2022-02-21] MEDS: LATANOPROST 0.005% OPHTH SOLN 2.5ML BOTTLE OU SCH (21:33)
[2022-02-22] MEDS: hydrOXYzine PAMOATE 25 MG CAPSULE (FP) PO SCH ×3 (06:25→14:32)
[2022-02-22] MEDS: DULoxetine HCL 30 MG CAPSULE.DR PO SCH (09:42)
[2022-02-22] MEDS: TIMOLOL 0.25% OPHTHALMIC SOL 5 ML BOTTLE OU SCH ×2 (09:42→21:32)
[2022-02-22] MEDS: ASPIRIN 81 MG CHEWABLE TABLETS PO SCH (09:43)
[2022-02-22] MEDS: amLODIPine BESYLATE 5 MG TABLET (FP) PO SCH (09:43)
[2022-02-22] MEDS: GABAPENTIN 300 MG CAPSULE PO SCH ×2 (09:43→21:32)
[2022-02-22] MEDS: NAPROXEN 500 MG TABLET PO SCH ×2 (09:43→21:32)
[2022-02-22] MEDS: PRENATAL VITAMINS W/ FOLIC ACID TABLET (FP) PO SCH (09:43)
[2022-02-22] MEDS: NICOTINE 7 MG/24 HOURS TOPICAL PATCH TD SCH (09:43)
[2022-02-22] MEDS ORDERED: hydrOXYzine PAMOATE 25 MG CAPSULE (FP) PO PRN (15:29)
[2022-02-22] MEDS: DOCUSATE SODIUM 100 MG CAPSULE (FP) PO SCH (21:32)
[2022-02-22] MEDS: LATANOPROST 0.005% OPHTH SOLN 2.5ML BOTTLE OU SCH (21:32)
[2022-02-22] MEDS: THIAMINE HCL 100 MG TABLET (FP) PO SCH (21:32)
[2022-02-22] MEDS: MELATONIN 5 MG TABLETS PO SCH (21:32)
[2022-02-23] MEDS: NICOTINE 7 MG/24 HOURS TOPICAL PATCH TD SCH (10:06)
[2022-02-23] MEDS: NAPROXEN 500 MG TABLET PO SCH ×2 (10:06→21:23)
[2022-02-23] MEDS: GABAPENTIN 300 MG CAPSULE PO SCH ×2 (10:06→21:23)
[2022-02-23] MEDS: PRENATAL VITAMINS W/ FOLIC ACID TABLET (FP) PO SCH (10:06)
[2022-02-23] MEDS: ASPIRIN 81 MG CHEWABLE TABLETS PO SCH (10:06)
[2022-02-23] MEDS: DULoxetine HCL 30 MG CAPSULE.DR PO SCH (10:06)
[2022-02-23] MEDS: TIMOLOL 0.25% OPHTHALMIC SOL 5 ML BOTTLE OU SCH ×2 (10:06→21:24)
[2022-02-23] MEDS: amLODIPine BESYLATE 5 MG TABLET (FP) PO SCH (10:06)
[2022-02-23] MEDS: DOCUSATE SODIUM 100 MG CAPSULE (FP) PO SCH (21:23)
[2022-02-23] MEDS: MELATONIN 5 MG TABLETS PO SCH (21:23)
[2022-02-23] MEDS: LATANOPROST 0.005% OPHTH SOLN 2.5ML BOTTLE OU SCH (21:23)
[2022-02-23] MEDS: THIAMINE HCL 100 MG TABLET (FP) PO SCH (21:23)
[2022-02-24] MEDS ORDERED: PHENYLEPHRINE 0.25%/STARCH 1 EACH SUPP.RECT RC ONE (10:03)
[2022-02-24] MEDS: TIMOLOL 0.25% OPHTHALMIC SOL 5 ML BOTTLE OU SCH ×2 (10:11→21:27)
[2022-02-24] MEDS: DULoxetine HCL 30 MG CAPSULE.DR PO SCH (10:11)
[2022-02-24] MEDS: NAPROXEN 500 MG TABLET PO SCH ×2 (10:11→21:26)
[2022-02-24] MEDS: amLODIPine BESYLATE 5 MG TABLET (FP) PO SCH (10:12)
[2022-02-24] MEDS: GABAPENTIN 300 MG CAPSULE PO SCH ×2 (10:12→21:26)
[2022-02-24] MEDS: NICOTINE 7 MG/24 HOURS TOPICAL PATCH TD SCH (10:12)
[2022-02-24] MEDS: ASPIRIN 81 MG CHEWABLE TABLETS PO SCH (10:12)
[2022-02-24] MEDS: PRENATAL VITAMINS W/ FOLIC ACID TABLET (FP) PO SCH (10:12)
[2022-02-24] MEDS: DOCUSATE SODIUM 100 MG CAPSULE (FP) PO SCH (21:26)
[2022-02-24] MEDS: THIAMINE HCL 100 MG TABLET (FP) PO SCH (21:26)
[2022-02-24] MEDS: MELATONIN 5 MG TABLETS PO SCH (21:26)
[2022-02-24] MEDS: LATANOPROST 0.005% OPHTH SOLN 2.5ML BOTTLE OU SCH (21:27)
[2022-02-25] MEDS: GABAPENTIN 300 MG CAPSULE PO SCH ×2 (09:31→21:45)
[2022-02-25] MEDS: amLODIPine BESYLATE 5 MG TABLET (FP) PO SCH (09:31)
[2022-02-25] MEDS: NAPROXEN 500 MG TABLET PO SCH ×2 (09:31→21:45)
[2022-02-25] MEDS: TIMOLOL 0.25% OPHTHALMIC SOL 5 ML BOTTLE OU SCH ×2 (09:31→21:45)
[2022-02-25] MEDS: DULoxetine HCL 30 MG CAPSULE.DR PO SCH (09:31)
[2022-02-25] MEDS: ASPIRIN 81 MG CHEWABLE TABLETS PO SCH (09:31)
[2022-02-25] MEDS: NICOTINE 7 MG/24 HOURS TOPICAL PATCH TD SCH (09:31)
[2022-02-25] MEDS: PRENATAL VITAMINS W/ FOLIC ACID TABLET (FP) PO SCH (09:33)
[2022-02-25] MEDS: THIAMINE HCL 100 MG TABLET (FP) PO SCH (21:44)
[2022-02-25] MEDS: MELATONIN 5 MG TABLETS PO SCH (21:44)
[2022-02-25] MEDS: LATANOPROST 0.005% OPHTH SOLN 2.5ML BOTTLE OU SCH (21:45)
[2022-02-25] MEDS: DOCUSATE SODIUM 100 MG CAPSULE (FP) PO SCH (21:45)
[2022-02-26] MEDS: DULoxetine HCL 30 MG CAPSULE.DR PO SCH (09:35)
[2022-02-26] MEDS: ASPIRIN 81 MG CHEWABLE TABLETS PO SCH (09:35)
[2022-02-26] MEDS: NAPROXEN 500 MG TABLET PO SCH ×2 (09:36→21:17)
[2022-02-26] MEDS: amLODIPine BESYLATE 5 MG TABLET (FP) PO SCH (09:36)
[2022-02-26] MEDS: NICOTINE 7 MG/24 HOURS TOPICAL PATCH TD SCH (09:36)
[2022-02-26] MEDS: GABAPENTIN 300 MG CAPSULE PO SCH ×2 (09:36→21:17)
[2022-02-26] MEDS: TIMOLOL 0.25% OPHTHALMIC SOL 5 ML BOTTLE OU SCH ×2 (09:36→21:18)
[2022-02-26] MEDS: PRENATAL VITAMINS W/ FOLIC ACID TABLET (FP) PO SCH (09:36)
[2022-02-26] MEDS: MELATONIN 5 MG TABLETS PO SCH (21:17)
[2022-02-26] MEDS: DOCUSATE SODIUM 100 MG CAPSULE (FP) PO SCH (21:17)
[2022-02-26] MEDS: THIAMINE HCL 100 MG TABLET (FP) PO SCH (21:17)
[2022-02-26] MEDS: LATANOPROST 0.005% OPHTH SOLN 2.5ML BOTTLE OU SCH (21:18)
[2022-02-27] MEDS: GABAPENTIN 300 MG CAPSULE PO SCH ×2 (10:05→21:19)
[2022-02-27] MEDS: ASPIRIN 81 MG CHEWABLE TABLETS PO SCH (10:05)
[2022-02-27] MEDS: amLODIPine BESYLATE 5 MG TABLET (FP) PO SCH (10:05)
[2022-02-27] MEDS: DULoxetine HCL 30 MG CAPSULE.DR PO SCH (10:05)
[2022-02-27] MEDS: NAPROXEN 500 MG TABLET PO SCH ×2 (10:05→21:21)
[2022-02-27] MEDS: PRENATAL VITAMINS W/ FOLIC ACID TABLET (FP) PO SCH (10:06)
[2022-02-27] MEDS: NICOTINE 7 MG/24 HOURS TOPICAL PATCH TD SCH (10:07)
[2022-02-27] MEDS: TIMOLOL 0.25% OPHTHALMIC SOL 5 ML BOTTLE OU SCH ×2 (10:07→21:18)
[2022-02-27] MEDS: LATANOPROST 0.005% OPHTH SOLN 2.5ML BOTTLE OU SCH (21:19)
[2022-02-27] MEDS: DOCUSATE SODIUM 100 MG CAPSULE (FP) PO SCH (21:20)
[2022-02-27] MEDS: MELATONIN 5 MG TABLETS PO SCH (21:21)
[2022-02-27] MEDS: THIAMINE HCL 100 MG TABLET (FP) PO SCH (21:21)
[2022-02-28] MEDS: ASPIRIN 81 MG CHEWABLE TABLETS PO SCH (09:30)
[2022-02-28] MEDS: DULoxetine HCL 30 MG CAPSULE.DR PO SCH (09:30)
[2022-02-28] MEDS: GABAPENTIN 300 MG CAPSULE PO SCH ×2 (09:31→21:13)
[2022-02-28] MEDS: NAPROXEN 500 MG TABLET PO SCH ×2 (09:31→21:13)
[2022-02-28] MEDS: NICOTINE 7 MG/24 HOURS TOPICAL PATCH TD SCH (09:31)
[2022-02-28] MEDS: amLODIPine BESYLATE 5 MG TABLET (FP) PO SCH (09:31)
[2022-02-28] MEDS: PRENATAL VITAMINS W/ FOLIC ACID TABLET (FP) PO SCH (09:31)
[2022-02-28] MEDS: TIMOLOL 0.25% OPHTHALMIC SOL 5 ML BOTTLE OU SCH ×2 (09:32→21:15)
[2022-02-28] MEDS: THIAMINE HCL 100 MG TABLET (FP) PO SCH (21:13)
[2022-02-28] MEDS: DOCUSATE SODIUM 100 MG CAPSULE (FP) PO SCH (21:13)
[2022-02-28] MEDS: MELATONIN 5 MG TABLETS PO SCH (21:14)
[2022-02-28] MEDS: LATANOPROST 0.005% OPHTH SOLN 2.5ML BOTTLE OU SCH (21:15)
[2022-03-01 06:31] VITALS: TEMP 97.7
[2022-03-01] MEDS: DULoxetine HCL 30 MG CAPSULE.DR PO SCH (09:45)
[2022-03-01] MEDS: TIMOLOL 0.25% OPHTHALMIC SOL 5 ML BOTTLE OU SCH ×2 (09:45→21:52)
[2022-03-01] MEDS: NICOTINE 7 MG/24 HOURS TOPICAL PATCH TD SCH (09:46)
[2022-03-01] MEDS: ASPIRIN 81 MG CHEWABLE TABLETS PO SCH (09:46)
[2022-03-01] MEDS: NAPROXEN 500 MG TABLET PO SCH ×2 (09:46→21:51)
[2022-03-01] MEDS: PRENATAL VITAMINS W/ FOLIC ACID TABLET (FP) PO SCH (09:46)
[2022-03-01] MEDS: GABAPENTIN 300 MG CAPSULE PO SCH ×2 (09:46→21:51)
[2022-03-01] MEDS: amLODIPine BESYLATE 5 MG TABLET (FP) PO SCH (09:46)
[2022-03-01] MEDS: DOCUSATE SODIUM 100 MG CAPSULE (FP) PO SCH (21:50)
[2022-03-01] MEDS: MELATONIN 5 MG TABLETS PO SCH (21:50)
[2022-03-01] MEDS: THIAMINE HCL 100 MG TABLET (FP) PO SCH (21:51)
[2022-03-01] MEDS: LATANOPROST 0.005% OPHTH SOLN 2.5ML BOTTLE OU SCH (22:04)
[2022-03-02 06:31] VITALS: BP 134/82; PULSE 61
[2022-03-02] MEDS: NAPROXEN 500 MG TABLET PO SCH (09:19)
[2022-03-02] MEDS: DULoxetine HCL 30 MG CAPSULE.DR PO SCH (09:19)
[2022-03-02] MEDS: ASPIRIN 81 MG CHEWABLE TABLETS PO SCH (09:19)
[2022-03-02] MEDS: amLODIPine BESYLATE 5 MG TABLET (FP) PO SCH (09:20)
[2022-03-02] MEDS: TIMOLOL 0.25% OPHTHALMIC SOL 5 ML BOTTLE OU SCH (09:20)
[2022-03-02] MEDS: GABAPENTIN 300 MG CAPSULE PO SCH (09:20)
[2022-03-02] MEDS: PRENATAL VITAMINS W/ FOLIC ACID TABLET (FP) PO SCH (09:20)
[2022-03-02] MEDS: NICOTINE 7 MG/24 HOURS TOPICAL PATCH TD SCH (09:20)
== END 2022-03-02 09:25 | disposition home or self-care (01) | DRG 772 ==
LOC: YASAS 13:42 → Y3E 13:43
PROVIDERS: ADMIT Allergy & Immunology; ATTEND Psychiatry & Neurology Pain Medicine
PROC: HZ42ZZZ Group Counseling for Substance Abuse Treatment, Cognitive-Behavioral (ICD-10-PCS; principal; 2022-02-18)
DX: F10.20 Alcohol dependence, uncomplicated (principal); F14.20 Cocaine dependence, uncomplicated; F17.210 Nicotine dependence, cigarettes, uncomplicated; F32.9 Major depressive disorder, single episode, unspecified; F43.10 Post-traumatic stress disorder, unspecified; H40.9 Unspecified glaucoma; M54.50 Low back pain, unspecified; G89.29 Other chronic pain; N40.0 Benign prostatic hyperplasia without lower urinary tract symptoms; Z86.79 Personal history of other diseases of the circulatory system
CPT/HCPCS: 36415; 86803

== ENCOUNTER 2022-10-03 11:18 | Inpatient (IN) | payer OTHER ==
[2022-10-03 12:10] VITALS: BMI 34.4
[2022-10-03] MEDS ORDERED: LOPERAMIDE HCL 2 MG CAPSULE PO PRN (12:38)
[2022-10-03] MEDS ORDERED: ONDANSETRON *ODT* 4 MG TABLET SL PRN (12:38)
[2022-10-03] MEDS ORDERED: POLYETHYLENE GLYCOL (HEALTHYLAX) 3350 17 GM PACKET PO PRN (12:38)
[2022-10-03] MEDS ORDERED: BISMUTH SUBSALICYLATE 524 MG/30 ML PO PRN (12:38)
[2022-10-03] MEDS ORDERED: NALOXONE HCL (KLOXXADO) 8 MG SPRAY NS PRN (12:38)
[2022-10-03] MEDS ORDERED: ACETAMINOPHEN 325 MG TABLET (FP) PO PRN ×2 (12:38)
[2022-10-03] MEDS ORDERED: hydrOXYzine PAMOATE 25 MG CAPSULE (FP) PO PRN (12:38)
[2022-10-03] MEDS ORDERED: MAG HYDROX/AL HYDROX/SIMETH 30 ML UNIT-DOSE CUP PO PRN (12:38)
[2022-10-03] MEDS ORDERED: BACLOFEN 10 MG TABLET (FP) PO PRN (12:38)
[2022-10-03] MEDS ORDERED: IBUPROFEN 400 MG TABLET (FP) PO PRN (12:38)
[2022-10-03] MEDS ORDERED: BENZOCAINE/MENTHOL (CHLORASEPTIC ) LOZENGE MM PRN (12:38)
[2022-10-03] MEDS ORDERED: DICYCLOMINE HCL 10 MG CAPSULE PO PRN (12:38)
[2022-10-03] MEDS ORDERED: LORazepam 1 MG TABLET PO PRN (12:38)
[2022-10-03] MEDS ORDERED: NICOTINE 10 MG CARTRIDGE (INHALER) IH PRN (12:38)
[2022-10-03] MEDS ORDERED: MAGNESIUM HYDROX 2400MG/30ML ORAL SUSPENSION 30 ML CUP PO PRN (12:38)
[2022-10-03] MEDS: ASPIRIN 81 MG CHEWABLE TABLETS PO SCH (13:53)
[2022-10-03] MEDS: amLODIPine BESYLATE 5 MG TABLET (FP) PO SCH (13:53)
[2022-10-03] MEDS: GABAPENTIN 300 MG CAPSULE PO SCH ×2 (13:53→22:35)
[2022-10-03] MEDS: PRENATAL VITAMINS W/ FOLIC ACID TABLET (FP) PO SCH (13:53)
[2022-10-03] MEDS: IBUPROFEN 600 MG TABLET (FP) PO PRN (13:56)
[2022-10-03] MEDS: TIMOLOL 0.25% OPHTHALMIC SOL 5 ML BOTTLE OU SCH ×2 (14:45→22:39)
[2022-10-03] MEDS: LORazepam 2 MG TABLET PO SCH ×2 (17:24→22:35)
[2022-10-03] MEDS: THIAMINE HCL 100 MG TABLET (FP) PO SCH (22:35)
[2022-10-03] MEDS: MELATONIN 5 MG TABLETS PO SCH (22:39)
[2022-10-03] MEDS: LATANOPROST 0.005% OPHTH SOLN 2.5ML BOTTLE OU SCH (22:39)
[2022-10-04] MEDS: LORazepam 2 MG TABLET PO SCH ×4 (06:04→22:45)
[2022-10-04] MEDS: amLODIPine BESYLATE 5 MG TABLET (FP) PO SCH (10:08)
[2022-10-04] MEDS: ASPIRIN 81 MG CHEWABLE TABLETS PO SCH (10:08)
[2022-10-04] MEDS: GABAPENTIN 300 MG CAPSULE PO SCH ×2 (10:08→22:46)
[2022-10-04] MEDS: IBUPROFEN 600 MG TABLET (FP) PO PRN ×2 (10:08→17:43)
[2022-10-04] MEDS: PRENATAL VITAMINS W/ FOLIC ACID TABLET (FP) PO SCH (10:08)
[2022-10-04] MEDS: TIMOLOL 0.25% OPHTHALMIC SOL 5 ML BOTTLE OU SCH ×2 (10:09→22:46)
[2022-10-04 10:54] LABS: HEMATOCRIT 43.2 % (35.4-49); HEMOGLOBIN 13.9 GM/dL (11.7-16.9); MCH 29.8 pg (25.7-33.7); MCHC 32.2 g/dl (32.0-35.9); MEAN CELL VOLUME 92.6 fl (80-96); MEAN PLT VOLUME 7.8 fl (7.5-11.1); PLATELET COUNT 242 10^3/uL (134-434); RBC 4.66 M/mm3 (4.00-5.60); RDW 14.4 % (11.9-15.9); WHITE BLOOD COUNT 5.8 K/mm3 (4.0-10.0)
[2022-10-04 11:50] LABS: ALBUMIN 3.7 g/dl (3.4-5.0)
[2022-10-04 11:52] LABS: BLOOD UREA NITROGEN 11.7 mg/dL (7-18); CALCIUM 8.8 mg/dL (8.5-10.1)
[2022-10-04 11:56] LABS: CREATININE 0.9 mg/dL (0.55-1.3)
[2022-10-04 11:58] LABS: TOT PROT 6.6 g/dl (6.4-8.2)
[2022-10-04] MEDS: LIDOCAINE 5% TOPICAL PATCH TP SCH (21:10)
[2022-10-04] MEDS: THIAMINE HCL 100 MG TABLET (FP) PO SCH (22:45)
[2022-10-04] MEDS: LATANOPROST 0.005% OPHTH SOLN 2.5ML BOTTLE OU SCH (22:45)
[2022-10-04] MEDS: MELATONIN 5 MG TABLETS PO SCH (22:46)
[2022-10-04] MEDS: LIDOCAINE PATCH REMOVAL MC SCH (22:48)
[2022-10-05] MEDS: LORazepam 1 MG TABLET PO SCH ×4 (06:08→22:56)
[2022-10-05] MEDS: IBUPROFEN 600 MG TABLET (FP) PO PRN (06:11)
[2022-10-05] MEDS ORDERED: LIDOCAINE PATCH REMOVAL MC ONE (10:00)
[2022-10-05] MEDS: PRENATAL VITAMINS W/ FOLIC ACID TABLET (FP) PO SCH (10:05)
[2022-10-05] MEDS: GABAPENTIN 300 MG CAPSULE PO SCH ×2 (10:05→22:56)
[2022-10-05] MEDS: TIMOLOL 0.25% OPHTHALMIC SOL 5 ML BOTTLE OU SCH ×2 (10:06→22:55)
[2022-10-05] MEDS: amLODIPine BESYLATE 5 MG TABLET (FP) PO SCH (10:06)
[2022-10-05] MEDS: ASPIRIN 81 MG CHEWABLE TABLETS PO SCH (10:06)
[2022-10-05] MEDS: LIDOCAINE 5% TOPICAL PATCH TP SCH (10:06)
[2022-10-05] MEDS: THIAMINE HCL 100 MG TABLET (FP) PO SCH (22:56)
[2022-10-05] MEDS: MELATONIN 5 MG TABLETS PO SCH (22:56)
[2022-10-05] MEDS: LIDOCAINE PATCH REMOVAL MC SCH (23:10)
[2022-10-05] MEDS: LATANOPROST 0.005% OPHTH SOLN 2.5ML BOTTLE OU SCH (23:10)
[2022-10-06] MEDS ORDERED: LORazepam 0.5 MG TABLET PO PRN
[2022-10-06] MEDS: LORazepam 0.5 MG TABLET PO SCH ×2 (06:08→10:00)
[2022-10-06] MEDS: LIDOCAINE 5% TOPICAL PATCH TP SCH (09:11)
[2022-10-06] MEDS: amLODIPine BESYLATE 5 MG TABLET (FP) PO SCH (09:11)
[2022-10-06] MEDS: PRENATAL VITAMINS W/ FOLIC ACID TABLET (FP) PO SCH (09:11)
[2022-10-06] MEDS: ASPIRIN 81 MG CHEWABLE TABLETS PO SCH (09:11)
[2022-10-06 09:12] VITALS: BP 151/75; PULSE 70; RESP 17; TEMP 98.1
[2022-10-06] MEDS: TIMOLOL 0.25% OPHTHALMIC SOL 5 ML BOTTLE OU SCH (09:12)
[2022-10-06] MEDS: GABAPENTIN 300 MG CAPSULE PO SCH (09:17)
[2022-10-07] MEDS ORDERED: LORazepam 0.5 MG TABLET PO ONE (05:00)
== END 2022-10-06 09:34 | disposition home or self-care (01) | DRG 774 ==
LOC: YASAS 11:18 → Y6N 12:39
PROVIDERS: ADMIT Allergy & Immunology; ATTEND Surgery
PROC: HZ2ZZZZ Detoxification Services for Substance Abuse Treatment (ICD-10-PCS; principal; 2022-10-03)
DX: F10.230 Alcohol dependence with withdrawal, uncomplicated (principal); F14.20 Cocaine dependence, uncomplicated; F12.20 Cannabis dependence, uncomplicated; F19.24 Other psychoactive substance dependence with psychoactive substance-induced mood disorder; F32.9 Major depressive disorder, single episode, unspecified; F43.10 Post-traumatic stress disorder, unspecified; G62.9 Polyneuropathy, unspecified; I10 Essential (primary) hypertension; M54.50 Low back pain, unspecified; G89.29 Other chronic pain; I69.854 Hemiplegia and hemiparesis following other cerebrovascular disease affecting left non-dominant side; I69.898 Other sequelae of other cerebrovascular disease; R26.89 Other abnormalities of gait and mobility; Z87.891 Personal history of nicotine dependence
CPT/HCPCS: 36415; 80053; 82140; 85027; 86780; 87811; 93005; 93010; C9803-CS; U0003; U0005

== ENCOUNTER 2022-11-21 10:30 | Inpatient (IN) | payer OTHER ==
[2022-11-21 11:34] VITALS: BMI 34.4
[2022-11-21] MEDS ORDERED: BENZONATATE 200 MG CAPSULE PO PRN (12:08)
[2022-11-21] MEDS ORDERED: IBUPROFEN 400 MG TABLET (FP) PO PRN (12:08)
[2022-11-21] MEDS ORDERED: P-EPHED 60MG/TRIPROLIDI 2.5MG TABLET PO PRN (12:08)
[2022-11-21] MEDS ORDERED: BISMUTH SUBSALICYLATE 262 MG/15 ML BTL PO PRN (12:08)
[2022-11-21] MEDS ORDERED: MAG HYDROX/AL HYDROX/SIMETH 30 ML UNIT-DOSE CUP PO PRN (12:08)
[2022-11-21] MEDS ORDERED: DICYCLOMINE HCL 10 MG CAPSULE PO PRN (12:08)
[2022-11-21] MEDS ORDERED: NICOTINE POLACRILEX 2 MG GUM BUC PRN (12:08)
[2022-11-21] MEDS ORDERED: NICOTINE 10 MG CARTRIDGE (INHALER) IH PRN (12:08)
[2022-11-21] MEDS ORDERED: POLYETHYLENE GLYCOL (HEALTHYLAX) 3350 17 GM PACKET PO PRN (12:08)
[2022-11-21] MEDS ORDERED: LOPERAMIDE HCL 2 MG CAPSULE PO PRN (12:08)
[2022-11-21] MEDS ORDERED: guaiFENesin 600 MG TABLET.ER (FP) PO PRN (12:08)
[2022-11-21] MEDS ORDERED: ACETAMINOPHEN 325 MG TABLET (FP) PO PRN (12:08)
[2022-11-21] MEDS ORDERED: BENZOCAINE/MENTHOL (CHLORASEPTIC ) LOZENGE MM PRN (12:08)
[2022-11-21] MEDS ORDERED: MAGNESIUM HYDROX 2400MG/30ML ORAL SUSPENSION 30 ML CUP PO PRN (12:08)
[2022-11-21] MEDS ORDERED: ONDANSETRON *ODT* 4 MG TABLET SL PRN (12:08)
[2022-11-21] MEDS ORDERED: diazePAM 5 MG TABLET PO PRN (12:11)
[2022-11-21] MEDS ORDERED: ASPIRIN 81 MG CHEWABLE TABLETS ONE (13:23)
[2022-11-21] MEDS ORDERED: amLODIPine BESYLATE 5 MG TABLET (FP) ONE (13:23)
[2022-11-21] MEDS: ASPIRIN 81 MG CHEWABLE TABLETS PO SCH (13:28)
[2022-11-21] MEDS: amLODIPine BESYLATE 5 MG TABLET (FP) PO SCH (13:28)
[2022-11-21] MEDS: TIMOLOL 0.25% OPHTHALMIC SOL 5 ML BOTTLE OU SCH ×2 (15:36→22:45)
[2022-11-21] MEDS: IBUPROFEN 600 MG TABLET (FP) PO PRN (22:43)
[2022-11-21] MEDS: hydrOXYzine PAMOATE 25 MG CAPSULE (FP) PO PRN (22:44)
[2022-11-21] MEDS: THIAMINE HCL 100 MG TABLET (FP) PO SCH (22:44)
[2022-11-21] MEDS: MELATONIN 5 MG TABLETS PO PRN (22:44)
[2022-11-21] MEDS: GABAPENTIN 300 MG CAPSULE PO SCH (22:44)
[2022-11-21] MEDS: LATANOPROST 0.005% OPHTH SOLN 2.5ML BOTTLE OU SCH (22:50)
[2022-11-22] MEDS ORDERED: chlordiazePOXIDE HCL 25 MG CAPSULE PO PRN (09:44)
[2022-11-22] MEDS: PRENATAL VITAMINS W/ FOLIC ACID TABLET (FP) PO SCH (10:08)
[2022-11-22] MEDS: ASPIRIN 81 MG CHEWABLE TABLETS PO SCH (10:09)
[2022-11-22] MEDS: amLODIPine BESYLATE 5 MG TABLET (FP) PO SCH (10:09)
[2022-11-22] MEDS: GABAPENTIN 300 MG CAPSULE PO SCH ×2 (10:09→22:24)
[2022-11-22] MEDS: TIMOLOL 0.25% OPHTHALMIC SOL 5 ML BOTTLE OU SCH ×2 (10:10→22:23)
[2022-11-22] MEDS: chlordiazePOXIDE HCL 25 MG CAPSULE PO SCH ×3 (10:20→22:25)
[2022-11-22] MEDS: IBUPROFEN 600 MG TABLET (FP) PO PRN ×2 (10:20→18:14)
[2022-11-22] MEDS: LIDOCAINE 5% TOPICAL PATCH TP SCH (10:21)
[2022-11-22 11:48] LABS: HEMATOCRIT 44.7 % (35.4-49); HEMOGLOBIN 14.9 GM/dL (11.7-16.9); MCH 30.5 pg (25.7-33.7); MCHC 33.4 g/dl (32.0-35.9); MEAN CELL VOLUME 91.3 fl (80-96); MEAN PLT VOLUME 8.3 fl (7.5-11.1); PLATELET COUNT 304 10^3/uL (134-434); RBC 4.89 M/mm3 (4.00-5.60); RDW 14.2 % (11.9-15.9); WHITE BLOOD COUNT 6.3 K/mm3 (4.0-10.0)
[2022-11-22 12:00] LABS: ALBUMIN 4.3 g/dl (3.4-5.0); CALCIUM 9.1 mg/dL (8.5-10.1)
[2022-11-22 12:02] LABS: CREATININE 0.9 mg/dL (0.55-1.3)
[2022-11-22 12:04] LABS: BILIRUBIN,TOTAL 0.5 mg/dL (0.2-1); TOT PROT 7.6 g/dl (6.4-8.2)
[2022-11-22] MEDS: MELATONIN 5 MG TABLETS PO PRN (22:23)
[2022-11-22] MEDS: THIAMINE HCL 100 MG TABLET (FP) PO SCH (22:24)
[2022-11-22] MEDS: hydrOXYzine PAMOATE 25 MG CAPSULE (FP) PO PRN (22:24)
[2022-11-22] MEDS: LATANOPROST 0.005% OPHTH SOLN 2.5ML BOTTLE OU SCH (22:27)
[2022-11-22] MEDS: LIDOCAINE PATCH REMOVAL MC SCH (22:51)
[2022-11-23] MEDS: chlordiazePOXIDE HCL 25 MG CAPSULE PO SCH ×4 (05:53→23:17)
[2022-11-23] MEDS: ASPIRIN 81 MG CHEWABLE TABLETS PO SCH (10:17)
[2022-11-23] MEDS: amLODIPine BESYLATE 5 MG TABLET (FP) PO SCH (10:18)
[2022-11-23] MEDS: TIMOLOL 0.25% OPHTHALMIC SOL 5 ML BOTTLE OU SCH ×2 (10:18→23:17)
[2022-11-23] MEDS: GABAPENTIN 300 MG CAPSULE PO SCH ×2 (10:18→23:16)
[2022-11-23] MEDS: LIDOCAINE 5% TOPICAL PATCH TP SCH (10:19)
[2022-11-23] MEDS: PRENATAL VITAMINS W/ FOLIC ACID TABLET (FP) PO SCH (10:22)
[2022-11-23] MEDS: IBUPROFEN 600 MG TABLET (FP) PO PRN (17:49)
[2022-11-23] MEDS: LIDOCAINE PATCH REMOVAL MC SCH (23:15)
[2022-11-23] MEDS: MELATONIN 5 MG TABLETS PO PRN (23:16)
[2022-11-23] MEDS: THIAMINE HCL 100 MG TABLET (FP) PO SCH (23:16)
[2022-11-23] MEDS: LATANOPROST 0.005% OPHTH SOLN 2.5ML BOTTLE OU SCH (23:16)
[2022-11-24] MEDS: chlordiazePOXIDE HCL 25 MG CAPSULE PO SCH ×2 (06:17→06:19)
[2022-11-24 09:17] VITALS: BP 127/71; PULSE 7; RESP 20; TEMP 97.8
[2022-11-24] MEDS: LIDOCAINE 5% TOPICAL PATCH TP SCH (10:10)
[2022-11-24] MEDS: GABAPENTIN 300 MG CAPSULE PO SCH (10:10)
[2022-11-24] MEDS: TIMOLOL 0.25% OPHTHALMIC SOL 5 ML BOTTLE OU SCH (10:10)
[2022-11-24] MEDS: ASPIRIN 81 MG CHEWABLE TABLETS PO SCH (10:10)
[2022-11-24] MEDS: amLODIPine BESYLATE 5 MG TABLET (FP) PO SCH (10:10)
[2022-11-24] MEDS: PRENATAL VITAMINS W/ FOLIC ACID TABLET (FP) PO SCH (10:10)
[2022-11-25] MEDS ORDERED: chlordiazePOXIDE HCL 10 MG CAPSULE PO PRN
[2022-11-25] MEDS ORDERED: chlordiazePOXIDE HCL 10 MG CAPSULE PO SCH (05:00)
[2022-11-26] MEDS ORDERED: chlordiazePOXIDE HCL 10 MG CAPSULE PO SCH (05:00)
[2022-11-27] MEDS ORDERED: chlordiazePOXIDE HCL 10 MG CAPSULE PO ONE (05:00)
== END 2022-11-24 10:33 | disposition left against medical advice (07) | DRG 770 ==
LOC: YASAS 10:30 → Y3N 12:39
PROVIDERS: ADMIT Allergy & Immunology; ATTEND Surgery
PROC: HZ2ZZZZ Detoxification Services for Substance Abuse Treatment (ICD-10-PCS; principal; 2022-11-21)
DX: F10.230 Alcohol dependence with withdrawal, uncomplicated (principal); F14.20 Cocaine dependence, uncomplicated; F17.210 Nicotine dependence, cigarettes, uncomplicated; F19.24 Other psychoactive substance dependence with psychoactive substance-induced mood disorder; F32.9 Major depressive disorder, single episode, unspecified; M51.26 Other intervertebral disc displacement, lumbar region; M54.50 Low back pain, unspecified; G89.29 Other chronic pain; Z86.79 Personal history of other diseases of the circulatory system; Z86.73 Personal history of transient ischemic attack (TIA), and cerebral infarction without residual deficits
CPT/HCPCS: 36415; 80053; 85027; 86780; C9803-CS; U0003; U0005

== ENCOUNTER 2022-12-29 09:30 | Inpatient (IN) | payer OTHER ==
[2022-12-29 10:28] VITALS: BMI 35.0
[2022-12-29] MEDS ORDERED: IBUPROFEN 600 MG TABLET (FP) PO PRN (11:47)
[2022-12-29] MEDS ORDERED: POLYETHYLENE GLYCOL (HEALTHYLAX) 3350 17 GM PACKET PO PRN (11:47)
[2022-12-29] MEDS ORDERED: LORazepam 1 MG TABLET PO PRN (11:47)
[2022-12-29] MEDS ORDERED: LOPERAMIDE HCL 2 MG CAPSULE PO PRN (11:47)
[2022-12-29] MEDS ORDERED: guaiFENesin 600 MG TABLET.ER (FP) PO PRN (11:47)
[2022-12-29] MEDS ORDERED: DICYCLOMINE HCL 10 MG CAPSULE PO PRN (11:47)
[2022-12-29] MEDS ORDERED: BENZOCAINE/MENTHOL (CHLORASEPTIC ) LOZENGE MM PRN (11:47)
[2022-12-29] MEDS ORDERED: NICOTINE POLACRILEX 4 MG GUM BUC PRN (11:47)
[2022-12-29] MEDS ORDERED: MAGNESIUM HYDROX 2400MG/30ML ORAL SUSPENSION 30 ML CUP PO PRN (11:47)
[2022-12-29] MEDS ORDERED: IBUPROFEN 400 MG TABLET (FP) PO PRN (11:47)
[2022-12-29] MEDS ORDERED: ONDANSETRON *ODT* 4 MG TABLET SL PRN (11:47)
[2022-12-29] MEDS ORDERED: NALOXONE HCL (KLOXXADO) 8 MG SPRAY NS PRN (11:47)
[2022-12-29] MEDS ORDERED: MAG HYDROX/AL HYDROX/SIMETH 30 ML UNIT-DOSE CUP PO PRN (11:47)
[2022-12-29] MEDS ORDERED: BENZONATATE 200 MG CAPSULE PO PRN (11:47)
[2022-12-29] MEDS ORDERED: NALOXONE HCL 0.4 MG/ML VIAL IM PRN (11:47)
[2022-12-29] MEDS ORDERED: BISMUTH SUBSALICYLATE 262 MG/15 ML BTL PO PRN (11:47)
[2022-12-29] MEDS ORDERED: NICOTINE 10 MG CARTRIDGE (INHALER) IH PRN (11:47)
[2022-12-29] MEDS: PRENATAL VITAMINS W/ FOLIC ACID TABLET (FP) PO SCH (14:12)
[2022-12-29] MEDS: LORazepam 2 MG TABLET PO SCH ×2 (17:31→22:44)
[2022-12-29] MEDS: ACETAMINOPHEN 325 MG TABLET (FP) PO PRN ×2 (17:33→22:44)
[2022-12-29] MEDS: MELATONIN 5 MG TABLETS PO SCH (22:44)
[2022-12-29] MEDS: THIAMINE HCL 100 MG TABLET (FP) PO SCH (22:44)
[2022-12-30] MEDS: LORazepam 2 MG TABLET PO SCH ×4 (05:57→22:27)
[2022-12-30] MEDS: hydrOXYzine PAMOATE 25 MG CAPSULE (FP) PO PRN ×2 (10:28→22:29)
[2022-12-30] MEDS: METHOCARBAMOL 500 MG TABLET PO PRN ×2 (10:28→22:29)
[2022-12-30] MEDS: PRENATAL VITAMINS W/ FOLIC ACID TABLET (FP) PO SCH (10:30)
[2022-12-30 15:07] LABS: HEMATOCRIT 44.6 % (35.4-49); HEMOGLOBIN 14.6 GM/dL (11.7-16.9); MCHC 32.7 g/dl (32.0-35.9); MEAN CELL VOLUME 91.6 fl (80-96); MEAN PLT VOLUME 7.8 fl (7.5-11.1); PLATELET COUNT 235 10^3/uL (134-434); RBC 4.88 M/mm3 (4.00-5.60); RDW 14.1 % (11.9-15.9); WHITE BLOOD COUNT 7.3 K/mm3 (4.0-10.0)
[2022-12-30 15:44] LABS: POTASSIUM 4.2 mmol/L (3.5-5.1)
[2022-12-30 15:50] LABS: ALBUMIN 3.8 g/dl (3.4-5.0); BLOOD UREA NITROGEN 13.1 mg/dL (7-18); CALCIUM 9.1 mg/dL (8.5-10.1)
[2022-12-30 15:54] LABS: CREATININE 0.9 mg/dL (0.55-1.3)
[2022-12-30 15:56] LABS: TOT PROT 6.8 g/dl (6.4-8.2)
[2022-12-30] MEDS: THIAMINE HCL 100 MG TABLET (FP) PO SCH (22:27)
[2022-12-30] MEDS: MELATONIN 5 MG TABLETS PO SCH (22:27)
[2022-12-31] MEDS: LORazepam 1 MG TABLET PO SCH ×2 (05:53→10:01)
[2022-12-31] MEDS: ACETAMINOPHEN 325 MG TABLET (FP) PO PRN (05:56)
[2022-12-31 09:36] VITALS: BP 133/71; PULSE 78; RESP 16; TEMP 97.3
[2022-12-31] MEDS: PRENATAL VITAMINS W/ FOLIC ACID TABLET (FP) PO SCH (10:01)
[2023-01-01] MEDS ORDERED: LORazepam 0.5 MG TABLET PO PRN
[2023-01-01] MEDS ORDERED: LORazepam 0.5 MG TABLET PO SCH (05:00)
[2023-01-02] MEDS ORDERED: LORazepam 0.5 MG TABLET PO ONE (05:00)
== END 2022-12-31 10:07 | disposition left against medical advice (07) | DRG 770 ==
LOC: YASAS 09:30 → Y6N 12:50
PROVIDERS: ADMIT Allergy & Immunology; ATTEND Surgery
PROC: HZ2ZZZZ Detoxification Services for Substance Abuse Treatment (ICD-10-PCS; principal; 2022-12-29)
DX: F10.230 Alcohol dependence with withdrawal, uncomplicated (principal); F14.20 Cocaine dependence, uncomplicated; F17.210 Nicotine dependence, cigarettes, uncomplicated; F19.282 Other psychoactive substance dependence with psychoactive substance-induced sleep disorder; F19.24 Other psychoactive substance dependence with psychoactive substance-induced mood disorder; F32.9 Major depressive disorder, single episode, unspecified; F43.10 Post-traumatic stress disorder, unspecified; G62.9 Polyneuropathy, unspecified; H40.9 Unspecified glaucoma; I10 Essential (primary) hypertension; K21.9 Gastro-esophageal reflux disease without esophagitis; Z86.73 Personal history of transient ischemic attack (TIA), and cerebral infarction without residual deficits; Z86.19 Personal history of other infectious and parasitic diseases
CPT/HCPCS: 36415; 80053; 82140; 85027; 86780; C9803-CS; U0003; U0005